=== PATIENT | female | born 1955 | race Caucasian/White ===

== ENCOUNTER 2017-11-30 13:20 | Outpatient (CLI) | payer OTHER ==
[~2017-11-30 13:20] MED LIST: ISOVUE-370 76%-LOCM 1 ML ONE
--- NOTE | 2017-11-30 18:29 | CT ---
CT ABDOMEN WITH AND WITHOUT IV CONTRAST CT PELVIS WITH AND WITHOUT IV CONTRAST: Date: 11-30-17 History: Complex right renal cyst. Follow up evaluation. Comparison: 09-14-16 FINDINGS: Previously described inferior pole right renal cystic lesion is again seen but measures smaller in si ze on today's examination measuring 3.2 cm with measurement on prior study of 4.1 cm. There is sugges tion of a faint thin linear almost imperceptible septation at the lateral aspect of this cystic lesio n. Attenuation coefficients on all phases of imaging suggests that this does represent a renal cyst w ithout abnormal enhancement present. No additional renal mass or cystic lesion is identified and ther e is no hydronephrosis. No renal or ureteral calculi are seen bilaterally. There is mild dependent bibasilar atelectasis. There is evidence of a small hiatal hernia on today's examination. There is mild intrahepatic biliary ductal dilatation just slightly more prominent than on the prior s tudy of uncertain etiology. The common duct measures 0.7 cm in diameter which is at the upper limits of normal. No pancreatic head mass is present. The pancreas has a normal CT appearance. The spleen, bilateral adrenal glands and left kidney demonstrate a normal CT appearance. Left total h ip prosthesis results in spray artifact in the pelvis limiting adequate evaluation of the urinary daryn dder and uterus, but the urinary bladder and uterus demonstrate a grossly normal CT appearance. There is colonic diverticulosis with moderate amount of retained fecal material seen throughout the c olon. No free fluid or lymphadenopathy is seen. The abdominal aorta is tortuous with mild atherosclerotic calcifications and plaque present. Post-surgical changes lumbar spine are again noted. Prominent multilevel degenerative changes in the spine with left convex scoliosis of the thoracolumbar spine. No other interval change. IMPRESSION: 1. Interval decrease in size of the inferior pole Bosniak type II right renal cyst. 2. Mild intrahepatic biliary ductal dilatation of uncertain etiology. 3. Small hiatal hernia. 4. Constipation. 5. No renal or ureteral calculi are seen bilaterally, and there is no hydronephrosis. The distal left ureter is incompletely evaluated due to artifact from left total hip prosthesis. POS: [facility]
== END 2017-11-30 13:21 | disposition home or self-care (01) ==
LOC: BICCT 13:20
PROVIDERS: ATTEND Urology
DX: N28.1 Cyst of kidney, acquired (principal); R93.89 Abnormal findings on diagnostic imaging of other specified body structures; K83.8 Other specified diseases of biliary tract; K44.9 Diaphragmatic hernia without obstruction or gangrene; K59.00 Constipation, unspecified
CPT/HCPCS: 36415; 74178; 80048; 81001; 87086

== ENCOUNTER 2019-07-26 13:45 | Outpatient (CLI) | payer BC ==
--- NOTE | 2019-07-26 15:16 | MRI ---
MRI CERVICAL SPINE WITHOUT CONTRAST: HISTORY: Cervical radiculopathy. Neck pain after tripping on floor and landing on neck a few months ago.. COMPARISON: None. FINDINGS: Appropriate T1 marrow signal intensity of the cervical vertebra. Cervical spine vertebral body heigh t is maintained. No fracture. No significant STIR hyperintensity to suggest vertebral body edema. There does appear to be edema involving the left facet at C4 and C5, along with fluid in the intra-ar ticular facet joint. Changes may be due to stress reaction. No abnormal signal intensity in the visualized brain parenchyma, cervicomedullary junction, cervical cord or the upper thoracic cord. Spinal listhesis: C5-C6: 2.4 mm of retrolisthesis. C6-C7: 2.3 mm of retrolisthesis. C2-C3: Disc desiccation with mild loss of disc space height. No significant central canal stenosis or significant neural foraminal narrowing. C3-C4: Disc desiccation with mild loss of disc space height. Broad-based disc bulge abuts the thecal sac. No significant central canal stenosis. Mild to moderate bilateral neural foraminal narrowing due to uncovertebral hypertrophy. C4-C5: Disc desiccation with mild loss of disc space height. No significant posterior disc abnormalit y. Mild to moderate bilateral foramina narrowing due to uncovertebral hypertrophy. C5-C6: Disc desiccation with severe loss of disc space height. Broad-based disc-osteophyte complex ef faces the subarachnoid space. Moderate central canal stenosis. Moderate to severe right and moderate left neural foraminal narrowing. C6-C7: Disc desiccation with severe loss of disc space height. Broad-based disc-osteophyte complex ab uts the thecal sac. Subarachnoid space is maintained. Mild to moderate central canal stenosis. Moderate bilateral neural foraminal narrowing. C7-T1: No significant central canal stenosis or significant neural foraminal narrowing. T2-T3: Sagittal images demonstrate a posterior disc bulge. Based on the sagittal images, no high-grad e central canal stenosis. IMPRESSION: 1. Degenerative changes of the cervical spine as described above. 2. Edema involving the left facet at C4 and C5, along with fluid in the associated facet joint space. Findings are presumed to be reactive. Transcribed Date/Time: 07/26/2019 3:37 PM
== END 2019-07-26 13:46 | disposition home or self-care (01) ==
LOC: BICMRI 13:45
PROVIDERS: ATTEND Anesthesiology Pain Medicine
DX: M50.10 Cervical disc disorder with radiculopathy, unspecified cervical region (principal); M47.22 Other spondylosis with radiculopathy, cervical region; R60.0 Localized edema
CPT/HCPCS: 72141

== ENCOUNTER 2021-07-01 10:48 | Outpatient (CLI) | payer MEDICARE | END 2021-07-01 10:49 | disposition home or self-care (01) | LOC: BICULT 10:48 | PROVIDERS: ATTEND Family Medicine | DX: R22.1 Localized swelling, mass and lump, neck (principal); R19.03 Right lower quadrant abdominal swelling, mass and lump; S22.41XA Multiple fractures of ribs, right side, initial encounter for closed fracture; R91.8 Other nonspecific abnormal finding of lung field | CPT/HCPCS: 74177; 76536; 82565 ==

== ENCOUNTER 2021-07-14 12:16 | Outpatient (CLI) | payer MEDICARE | END 2021-07-14 12:17 | disposition home or self-care (01) | LOC: CT 12:16 | PROVIDERS: ATTEND Family Medicine | DX: E07.89 Other specified disorders of thyroid (principal) | CPT/HCPCS: 70491; 82565 ==

== ENCOUNTER → 2021-08-03 | Day surgery (SDC) | payer MEDICARE ==
[2021-07-29 12:26] VITALS: BMI 17.9
[~2021-08-03] MED LIST changes: -ISOVUE-370 76%-LOCM 1 ML ONE; +Lidocaine 1% PF 5 ML VIAL ONE; +Sodium Bicarbonate 2.5 MEQ/5 ML VIAL ONE
[2021-08-03 15:07] VITALS: BP 133/78; TEMP 98.1
== END | disposition home or self-care (01) ==
LOC: ULT 13:35
PROVIDERS: ATTEND Student in an Organized Health Care Education/Training Program
PROC: 0J943ZX Drainage of Right Neck Subcutaneous Tissue and Fascia, Percutaneous Approach, Diagnostic (ICD-10-PCS; principal; 2021-08-03)
DX: R22.1 Localized swelling, mass and lump, neck (principal); Z79.82 Long term (current) use of aspirin; Z79.890 Hormone replacement therapy; Z79.899 Other long term (current) drug therapy; Z88.0 Allergy status to penicillin; Z88.1 Allergy status to other antibiotic agents; Z88.2 Allergy status to sulfonamides; Z88.8 Allergy status to other drugs, medicaments and biological substances; Z91.048 Other nonmedicinal substance allergy status
CPT/HCPCS: 10005; 88184; 88305; 88333

== ENCOUNTER 2021-08-04 14:23 | Outpatient (CLI) | payer MEDICARE | END 2021-08-04 14:24 | disposition home or self-care (01) | LOC: LABBT 14:23 | PROVIDERS: ATTEND Internal Medicine Gastroenterology | DX: Z20.822 Contact with and (suspected) exposure to COVID-19 (principal) | CPT/HCPCS: U0003; U0005 ==

== ENCOUNTER 2021-08-09 08:17 | Day surgery (SDC) | payer MEDICARE ==
[2021-08-05 11:44] VITALS: BMI 16.4
[2021-08-09] MEDS ORDERED: PROPOFOL 200 MG/20 ML VIAL ONE (09:37)
[2021-08-09] MEDS ORDERED: Racepinephrine 2.25% 0.5 ML NEB ONE ×2 (10:43→10:45)
[2021-08-09] MEDS ORDERED: Ondansetron PF 4 MG/2 ML Vial ONE (11:16)
== END 2021-08-09 13:40 | disposition home or self-care (01) ==
LOC: SDC 08:17
PROVIDERS: ATTEND Internal Medicine Gastroenterology
PROC: 0DB98ZX Excision of Duodenum, Via Natural or Artificial Opening Endoscopic, Diagnostic (ICD-10-PCS; principal; 2021-08-09)
PROC: 0DB68ZX Excision of Stomach, Via Natural or Artificial Opening Endoscopic, Diagnostic (ICD-10-PCS; 2021-08-09)
PROC: 0DB48ZX Excision of Esophagogastric Junction, Via Natural or Artificial Opening Endoscopic, Diagnostic (ICD-10-PCS; 2021-08-09)
PROC: 0DJD8ZZ Inspection of Lower Intestinal Tract, Via Natural or Artificial Opening Endoscopic (ICD-10-PCS; 2021-08-09)
DX: C83.39 Diffuse large B-cell lymphoma, extranodal and solid organ sites (principal); B37.81 Candidal esophagitis; K25.9 Gastric ulcer, unspecified as acute or chronic, without hemorrhage or perforation; K44.9 Diaphragmatic hernia without obstruction or gangrene; K21.9 Gastro-esophageal reflux disease without esophagitis; R13.19 Other dysphagia; K59.09 Other constipation; E78.00 Pure hypercholesterolemia, unspecified; E03.9 Hypothyroidism, unspecified; F17.210 Nicotine dependence, cigarettes, uncomplicated; R63.4 Abnormal weight loss; Z68.1 Body mass index [BMI] 19.9 or less, adult; Z79.82 Long term (current) use of aspirin; Z79.899 Other long term (current) drug therapy; Z79.890 Hormone replacement therapy; Z88.0 Allergy status to penicillin; Z88.1 Allergy status to other antibiotic agents; Z88.2 Allergy status to sulfonamides; Z88.8 Allergy status to other drugs, medicaments and biological substances; Z91.040 Latex allergy status; Z91.048 Other nonmedicinal substance allergy status
CPT/HCPCS: 88184; 88305; 88312; 88313; J2405; J2704; J7620

== ENCOUNTER 2021-08-16 16:52 | Inpatient (IN) | payer MEDICARE ==
[~2021-08-16 16:52] MED LIST changes: +ISOVUE-370 76%-LOCM 1 ML ONE; -Lidocaine 1% PF 5 ML VIAL ONE; -Sodium Bicarbonate 2.5 MEQ/5 ML VIAL ONE
[2021-08-16 17:33] LABS: #Basophils 0.1 thou/uL (0.0-0.2); #Lymphocytes 0.4 thou/uL (1.20-3.40); #Monocytes 0.1 thou/uL (0.11-0.59); #Neutrophils 10.7 thou/uL (1.40-6.50); %Basophils 0.6 % (0.0-1.0); %Eosinophils 0.2 % (0.0-10.0); %Lymphocytes 3.3 % (21.0-51.0); %Neutrophils 94.9 % (42.0-75.0); Hemoglobin 9.8 g/dL (12.0-16.0); Mean Corpuscular HGB CONC 33.1 g/dL (32.0-36.0); Mean Corpuscular Hemoglobin 31.8 pg (27.0-31.0); Mean Platelet Volume 6.4 fL (7.4-10.4); Platelet Count 482 thou/uL (130-400); RBC Distribution Width 13.1 % (11.5-14.5); Red Blood Cell (RBC) Count 3.08 mill/uL (4.20-5.40); White Blood Cell (WBC) Count 11.3 thou/uL (4.8-10.8)
[2021-08-16 17:53] LABS: ALT (SGPT) 7 U/L (8-55); AST (SGOT) 14 U/L (5-34); Albumin 3.1 g/dL (3.4-4.8); Alkaline Phosphatase 103 U/L (40-110); Anion Gap 13 mmol/L (10-20); BUN (Urea Nitrogen) 12 mg/dL (9.8-20.1); Bilirubin, Total 0.2 mg/dL (0.2-1.2); Calc. Creatinine Clearance 0 mL/min (70-130); Carbon Dioxide 28 mmol/L (23-31); Chloride 98 mmol/L (98-107); Globulin 2.4 g/dL (2.4-3.5); Glucose 136 mg/dL (80-115); Potassium 4.1 mmol/L (3.5-5.1); Protein, Total 5.5 g/dL (5.8-8.1); Sodium 135 mmol/L (136-145)
[2021-08-16 20:51] LABS: Troponin I Less than 0.010 ng/mL (< 0.028)
[2021-08-16] MEDS ORDERED: Ondansetron ODT 4 MG TAB SL PRN (21:00)
[2021-08-16] MEDS ORDERED: Acetaminophen 325 MG TAB PO PRN (21:00)
[2021-08-16] MEDS ORDERED: Ondansetron PF 4 MG/2 ML Vial IVP PRN (21:00)
[2021-08-16] MEDS ORDERED: Acetaminophen 650 MG Suppository PR PRN (21:07)
[2021-08-16 21:12] LABS: SARS-CoV-2 NAA Rapid Test Not Detected (NotDetected)
[2021-08-16 23:27] LABS: Troponin I Less than 0.010 ng/mL (< 0.028)
[2021-08-17 04:04] LABS: #Lymphocytes 0.5 thou/uL (1.20-3.40); #Monocytes 0.1 thou/uL (0.11-0.59); #Neutrophils 7.8 thou/uL (1.40-6.50); %Eosinophils 0.1 % (0.0-10.0); %Lymphocytes 5.5 % (21.0-51.0); %Monocytes 1.5 % (0.0-10.0); %Neutrophils 92.9 % (42.0-75.0); Hemoglobin 9.9 g/dL (12.0-16.0); Mean Corpuscular HGB CONC 32.1 g/dL (32.0-36.0); Mean Corpuscular Hemoglobin 31.5 pg (27.0-31.0); Mean Corpuscular Volume 98.2 fL (78.0-98.0); Mean Platelet Volume 6.2 fL (7.4-10.4); Platelet Count 510 thou/uL (130-400); RBC Distribution Width 13.3 % (11.5-14.5); Red Blood Cell (RBC) Count 3.13 mill/uL (4.20-5.40); White Blood Cell (WBC) Count 8.4 thou/uL (4.8-10.8)
[2021-08-17 04:23] LABS: Anion Gap 12 mmol/L (10-20); BUN (Urea Nitrogen) 13 mg/dL (9.8-20.1); Calc. Creatinine Clearance 48 mL/min (70-130); Calcium 8.7 mg/dL (7.8-10.44); Carbon Dioxide 30 mmol/L (23-31); Chloride 99 mmol/L (98-107); Glucose 123 mg/dL (80-115); Potassium 4.2 mmol/L (3.5-5.1); Sodium 137 mmol/L (136-145)
[2021-08-17] MEDS: Amlodipine 5 MG TAB PO SCH ×2 (08:50→13:50)
[2021-08-17] MEDS: Buprenorphine 8mg/Naloxone 2mg per 1 FILM SL SCH ×2 (08:50→20:52)
[2021-08-17] MEDS: Aspirin 81 mg Enteric Coated Tablet PO SCH ×2 (08:50→13:50)
[2021-08-17] MEDS: Gabapentin 300 MG CAP PO SCH ×4 (08:50→20:28)
[2021-08-17] MEDS: DULoxetine 60 MG CAP PO SCH ×2 (08:50→13:50)
[2021-08-17] MEDS: levETIRAcetam 500 MG TAB PO SCH ×3 (08:51→20:29)
[2021-08-17] MEDS: Levothyroxine Sodium 100 MCG TAB PO SCH ×2 (08:51→13:50)
[2021-08-17] MEDS: Multivitamin W/ Minerals 1 TAB PO SCH ×2 (08:51→13:50)
[2021-08-17] MEDS ORDERED: [UNRECOGNIZED DRUG - OTHER] SL SCH (09:00)
[2021-08-17] MEDS ORDERED: [UNRECOGNIZED DRUG - OTHER] SL SCH (09:00)
[2021-08-17] MEDS ORDERED: Non-Formulary Item 1 EACH (Multivitamin With Minerals [Multiple Vitamin] 1 TABLET Tablet) PO SCH (09:00)
[2021-08-17] MEDS ORDERED: BUPRENORPHINE HCL SL SCH ×2 (09:00)
[2021-08-17] MEDS ORDERED: Non-Formulary Item 1 EACH (Amlodipine Besylate [Amlodipine Besylate] 2.5 MG Tablet) PO SCH (09:00)
[2021-08-17] MEDS ORDERED: NALOXONE HCL SL SCH ×2 (09:00)
[2021-08-17] MEDS: Enoxaparin Sodium 40 MG/0.4 ML SYRINGE SC SCH (09:39)
[2021-08-17] MEDS: Atorvastatin Calcium 40 MG TAB PO SCH (20:28)
[2021-08-17] MEDS ORDERED: Donepezil HCl 5 MG TAB PO SCH (21:00)
[2021-08-18] MEDS: Enoxaparin Sodium 40 MG/0.4 ML SYRINGE SC SCH (07:58)
[2021-08-18 08:54] LABS: INR-International Normal Ratio 0.9; PTT 26.2 sec (22.9-36.1); Prothrombin Time 12.3 sec (12.0-14.7)
[2021-08-18] MEDS ORDERED: Dexamethasone 20 MG in Sodium Chloride 0.9% 50 ML IVPB SCH ×2 (09:00→11:30)
[2021-08-18] MEDS ORDERED: SODIUM CHLORIDE 0.9% IVPB SCH ×3 (09:00→13:00)
[2021-08-18] MEDS ORDERED: PALONOSETRON HCL 0.05 MG/ML 5 ML VIAL IVP SCH ×2 (09:00→11:15)
[2021-08-18] MEDS ORDERED: RITUXAN IVPB SCH (09:00)
[2021-08-18] MEDS ORDERED: diphenhydrAMINE 50 MG/ML VIAL IVP SCH (09:00)
[2021-08-18] MEDS ORDERED: Pegfilgrastim Onpro 6 MG/0.6 ML SQ SCH (09:00)
[2021-08-18] MEDS ORDERED: DOXORUBICIN IVPB SCH ×2 (09:15→13:00)
[2021-08-18] MEDS ORDERED: VINCRISTINE SULFATE IVP SCH (09:15)
[2021-08-18] MEDS ORDERED: Cyclophosphamide 1 GM in Sodium Chloride 0.9% 250 ML 250 ML IVPB SCH ×2 (09:15→13:00)
[2021-08-18] MEDS ORDERED: ADMIXTURE FEE IVP SCH (09:15)
[2021-08-18] MEDS: Buprenorphine 8mg/Naloxone 2mg per 1 FILM SL SCH ×2 (10:19→22:31)
[2021-08-18] MEDS: Aspirin 81 mg Enteric Coated Tablet PO SCH (10:20)
[2021-08-18] MEDS: Multivitamin W/ Minerals 1 TAB PO SCH (10:21)
[2021-08-18] MEDS: Levothyroxine Sodium 100 MCG TAB PO SCH (10:22)
[2021-08-18] MEDS: Gabapentin 300 MG CAP PO SCH ×3 (10:22→21:36)
[2021-08-18] MEDS: DULoxetine 60 MG CAP PO SCH (10:23)
[2021-08-18] MEDS: levETIRAcetam 500 MG TAB PO SCH ×2 (10:23→21:36)
[2021-08-18] MEDS: Amlodipine 5 MG TAB PO SCH (10:24)
[2021-08-18 10:26] VITALS: BP 144/68
[2021-08-18] MEDS ORDERED: Sodium Bicarbonate 2.5 MEQ/5 ML VIAL ONE (11:28)
[2021-08-18] MEDS ORDERED: Lidocaine 1% PF 5 ML VIAL ONE (11:28)
[2021-08-18] MEDS ORDERED: diphenhydrAMINE 50 MG in Sodium Chloride 0.9% 50 ML IVPB SCH (11:30)
[2021-08-18] MEDS ORDERED: vinCRIStine Sulfate 2 MG in Sodium Chloride 0.9% 50 ML IVPB SCH (13:00)
[2021-08-18] MEDS ORDERED: methylPREDNISolone Sod Succ/PF 125 MG/2 ML VIAL IVP SCH (13:30)
[2021-08-18] MEDS ORDERED: Ondansetron PF 4 MG/2 ML Vial IVP PRN (18:28)
[2021-08-18] MEDS: Atorvastatin Calcium 40 MG TAB PO SCH (21:36)
[2021-08-19] MEDS ORDERED: predniSONE 50 MG TAB PO SCH (08:00)
[2021-08-19] MEDS: Buprenorphine 8mg/Naloxone 2mg per 1 FILM SL SCH ×2 (09:38→20:51)
[2021-08-19] MEDS: DULoxetine 60 MG CAP PO SCH (09:39)
[2021-08-19] MEDS: Aspirin 81 mg Enteric Coated Tablet PO SCH (09:39)
[2021-08-19] MEDS: Amlodipine 5 MG TAB PO SCH (09:39)
[2021-08-19] MEDS: levETIRAcetam 500 MG TAB PO SCH ×2 (09:39→20:29)
[2021-08-19] MEDS: Enoxaparin Sodium 40 MG/0.4 ML SYRINGE SC SCH (09:39)
[2021-08-19] MEDS: Multivitamin W/ Minerals 1 TAB PO SCH (09:39)
[2021-08-19] MEDS: Gabapentin 300 MG CAP PO SCH ×3 (09:39→20:28)
[2021-08-19] MEDS: Levothyroxine Sodium 100 MCG TAB PO SCH (09:39)
[2021-08-19] MEDS ORDERED: Acetaminophen 500 MG TAB PO SCH (14:30)
[2021-08-19] MEDS ORDERED: PEGFILGRASTIM-JMDB 6 MG/0.6 ML SYRINGE SQ SCH (14:30)
[2021-08-19] MEDS: Atorvastatin Calcium 40 MG TAB PO SCH (20:28)
[2021-08-19] MEDS: Acetaminophen 325 MG TAB PO PRN (23:23)
[2021-08-20 04:40] LABS: #Lymphocytes 0.7 thou/uL (1.20-3.40); #Monocytes 0.5 thou/uL (0.11-0.59); #Neutrophils 14.7 thou/uL (1.40-6.50); %Basophils 0.1 % (0.0-1.0); %Eosinophils 0.2 % (0.0-10.0); %Lymphocytes 4.6 % (21.0-51.0); %Monocytes 3.4 % (0.0-10.0); %Neutrophils 91.7 % (42.0-75.0); Hemoglobin 9.3 g/dL (12.0-16.0); Mean Corpuscular HGB CONC 31.7 g/dL (32.0-36.0); Mean Corpuscular Hemoglobin 31.6 pg (27.0-31.0); Mean Corpuscular Volume 99.7 fL (78.0-98.0); Mean Platelet Volume 6.7 fL (7.4-10.4); Platelet Count 428 thou/uL (130-400); RBC Distribution Width 13.3 % (11.5-14.5); Red Blood Cell (RBC) Count 2.94 mill/uL (4.20-5.40); White Blood Cell (WBC) Count 16.1 thou/uL (4.8-10.8)
[2021-08-20 05:05] LABS: Anion Gap 11 mmol/L (10-20); BUN (Urea Nitrogen) 11 mg/dL (9.8-20.1); Calc. Creatinine Clearance 59 mL/min (70-130); Calcium 8.5 mg/dL (7.8-10.44); Carbon Dioxide 31 mmol/L (23-31); Chloride 99 mmol/L (98-107); Glucose 105 mg/dL (80-115); Potassium 4.3 mmol/L (3.5-5.1); Sodium 137 mmol/L (136-145)
[2021-08-20] MEDS: Gabapentin 300 MG CAP PO SCH ×3 (09:56→22:03)
[2021-08-20] MEDS: Multivitamin W/ Minerals 1 TAB PO SCH (09:56)
[2021-08-20] MEDS: Aspirin 81 mg Enteric Coated Tablet PO SCH (09:56)
[2021-08-20] MEDS: Buprenorphine 8mg/Naloxone 2mg per 1 FILM SL SCH ×2 (09:56→22:04)
[2021-08-20] MEDS: Levothyroxine Sodium 100 MCG TAB PO SCH (09:56)
[2021-08-20] MEDS: DULoxetine 60 MG CAP PO SCH (09:57)
[2021-08-20] MEDS: Amlodipine 5 MG TAB PO SCH (09:57)
[2021-08-20] MEDS: levETIRAcetam 500 MG TAB PO SCH ×2 (09:57→22:03)
[2021-08-20] MEDS: Enoxaparin Sodium 40 MG/0.4 ML SYRINGE SC SCH (09:57)
[2021-08-20 14:14] VITALS: BMI 17.4
[2021-08-20] MEDS: Atorvastatin Calcium 40 MG TAB PO SCH (22:03)
[2021-08-21 06:40] LABS: ALT (SGPT) 14 U/L (8-55); AST (SGOT) 15 U/L (5-34); Albumin 2.9 g/dL (3.4-4.8); Alkaline Phosphatase 84 U/L (40-110); Anion Gap 8 mmol/L (10-20); BUN (Urea Nitrogen) 11 mg/dL (9.8-20.1); Bilirubin, Total 0.2 mg/dL (0.2-1.2); Calc. Creatinine Clearance 64 mL/min (70-130); Calcium 8.2 mg/dL (7.8-10.44); Carbon Dioxide 33 mmol/L (23-31); Chloride 101 mmol/L (98-107); Globulin 2.3 g/dL (2.4-3.5); Glucose 85 mg/dL (80-115); Potassium 4.3 mmol/L (3.5-5.1); Protein, Total 5.2 g/dL (5.8-8.1); Sodium 138 mmol/L (136-145); Uric Acid 3.8 mg/dL (2.6-6.0)
[2021-08-21] MEDS: Aspirin 81 mg Enteric Coated Tablet PO SCH (09:46)
[2021-08-21] MEDS: Gabapentin 300 MG CAP PO SCH ×3 (09:47→21:33)
[2021-08-21] MEDS: Amlodipine 5 MG TAB PO SCH (09:47)
[2021-08-21] MEDS: predniSONE 50 MG TAB PO SCH (09:47)
[2021-08-21] MEDS: Multivitamin W/ Minerals 1 TAB PO SCH (09:48)
[2021-08-21] MEDS: levETIRAcetam 500 MG TAB PO SCH ×2 (09:48→21:33)
[2021-08-21] MEDS: DULoxetine 60 MG CAP PO SCH (09:48)
[2021-08-21] MEDS: Enoxaparin Sodium 40 MG/0.4 ML SYRINGE SC SCH (09:48)
[2021-08-21] MEDS: Buprenorphine 8mg/Naloxone 2mg per 1 FILM SL SCH ×2 (09:49→21:32)
[2021-08-21] MEDS: Levothyroxine Sodium 100 MCG TAB PO SCH (09:52)
[2021-08-21] MEDS: Acetaminophen 325 MG TAB PO PRN (10:13)
[2021-08-21] MEDS ORDERED: PEGFILGRASTIM-JMDB 6 MG/0.6 ML SYRINGE SQ SCH (13:00)
[2021-08-21] MEDS: Atorvastatin Calcium 40 MG TAB PO SCH (21:32)
[2021-08-22] MEDS: Acetaminophen 325 MG TAB PO PRN (04:42)
[2021-08-22 07:16] LABS: ALT (SGPT) 16 U/L (8-55); AST (SGOT) 13 U/L (5-34); Alkaline Phosphatase 94 U/L (40-110); Anion Gap 11 mmol/L (10-20); BUN (Urea Nitrogen) 12 mg/dL (9.8-20.1); Bilirubin, Total 0.2 mg/dL (0.2-1.2); Calc. Creatinine Clearance 61 mL/min (70-130); Calcium 8.5 mg/dL (7.8-10.44); Carbon Dioxide 33 mmol/L (23-31); Chloride 101 mmol/L (98-107); Globulin 2.5 g/dL (2.4-3.5); Potassium 4.1 mmol/L (3.5-5.1); Protein, Total 5.5 g/dL (5.8-8.1); Sodium 141 mmol/L (136-145)
[2021-08-22 07:20] LABS: Glucose 55 mg/dL (80-115)
[2021-08-22] MEDS: Levothyroxine Sodium 100 MCG TAB PO SCH (07:49)
[2021-08-22] MEDS: Amlodipine 5 MG TAB PO SCH (07:50)
[2021-08-22] MEDS: Multivitamin W/ Minerals 1 TAB PO SCH (07:50)
[2021-08-22] MEDS: levETIRAcetam 500 MG TAB PO SCH ×2 (07:50→19:57)
[2021-08-22] MEDS: Aspirin 81 mg Enteric Coated Tablet PO SCH (07:50)
[2021-08-22] MEDS: DULoxetine 60 MG CAP PO SCH (07:50)
[2021-08-22] MEDS: Gabapentin 300 MG CAP PO SCH ×3 (07:50→19:56)
[2021-08-22] MEDS: predniSONE 50 MG TAB PO SCH (07:50)
[2021-08-22] MEDS: Buprenorphine 8mg/Naloxone 2mg per 1 FILM SL SCH ×2 (07:51→20:15)
[2021-08-22] MEDS: Enoxaparin Sodium 40 MG/0.4 ML SYRINGE SC SCH (07:51)
[2021-08-22] MEDS: Atorvastatin Calcium 40 MG TAB PO SCH (19:56)
[2021-08-23 04:53] LABS: ALT (SGPT) 10 U/L (8-55); AST (SGOT) 8 U/L (5-34); Albumin 2.7 g/dL (3.4-4.8); Alkaline Phosphatase 93 U/L (40-110); Anion Gap 10 mmol/L (10-20); BUN (Urea Nitrogen) 17 mg/dL (9.8-20.1); Bilirubin, Total 0.3 mg/dL (0.2-1.2); Calc. Creatinine Clearance 60 mL/min (70-130); Calcium 8.3 mg/dL (7.8-10.44); Carbon Dioxide 34 mmol/L (23-31); Chloride 103 mmol/L (98-107); Globulin 2.2 g/dL (2.4-3.5); Glucose 83 mg/dL (80-115); Potassium 4.1 mmol/L (3.5-5.1); Protein, Total 4.9 g/dL (5.8-8.1); Sodium 143 mmol/L (136-145); Uric Acid 3.8 mg/dL (2.6-6.0)
[2021-08-23] MEDS: Acetaminophen 325 MG TAB PO PRN (06:22)
[2021-08-23] MEDS: Aspirin 81 mg Enteric Coated Tablet PO SCH (08:04)
[2021-08-23] MEDS: Multivitamin W/ Minerals 1 TAB PO SCH (08:04)
[2021-08-23] MEDS: predniSONE 50 MG TAB PO SCH (08:04)
[2021-08-23] MEDS: Gabapentin 300 MG CAP PO SCH (08:04)
[2021-08-23] MEDS: Amlodipine 5 MG TAB PO SCH (08:05)
[2021-08-23] MEDS: levETIRAcetam 500 MG TAB PO SCH (08:07)
[2021-08-23] MEDS: Enoxaparin Sodium 40 MG/0.4 ML SYRINGE SC SCH (08:07)
[2021-08-23] MEDS: Levothyroxine Sodium 100 MCG TAB PO SCH (08:07)
[2021-08-23] MEDS: DULoxetine 60 MG CAP PO SCH (08:07)
[2021-08-23] MEDS: Buprenorphine 8mg/Naloxone 2mg per 1 FILM SL SCH (09:31)
[2021-08-23 15:30] VITALS: TEMP 98
== END 2021-08-23 17:20 | disposition home health service (06) | DRG 840 ==
LOC: ERS 16:52 → IMCU/EMU 19:20
PROVIDERS: ADMIT Student in an Organized Health Care Education/Training Program; ATTEND Internal Medicine
PROC: 079T3ZX Drainage of Bone Marrow, Percutaneous Approach, Diagnostic (ICD-10-PCS; principal; 2021-08-18)
PROC: 07DR3ZX Extraction of Iliac Bone Marrow, Percutaneous Approach, Diagnostic (ICD-10-PCS; 2021-08-18)
PROC: 02HV33Z Insertion of Infusion Device into Superior Vena Cava, Percutaneous Approach (ICD-10-PCS; 2021-08-18)
PROC: B5181ZA Fluoroscopy of Superior Vena Cava using Low Osmolar Contrast, Guidance (ICD-10-PCS; 2021-08-18)
PROC: B548ZZA Ultrasonography of Superior Vena Cava, Guidance (ICD-10-PCS; 2021-08-18)
DX: C83.31 Diffuse large B-cell lymphoma, lymph nodes of head, face, and neck (principal); E43 Unspecified severe protein-calorie malnutrition; Z68.1 Body mass index [BMI] 19.9 or less, adult; E03.9 Hypothyroidism, unspecified; E78.5 Hyperlipidemia, unspecified; E78.00 Pure hypercholesterolemia, unspecified; Z96.642 Presence of left artificial hip joint; Z96.651 Presence of right artificial knee joint; F32.A Depression, unspecified; F41.9 Anxiety disorder, unspecified; J39.8 Other specified diseases of upper respiratory tract; G89.29 Other chronic pain; D72.829 Elevated white blood cell count, unspecified; Z20.822 Contact with and (suspected) exposure to COVID-19; F17.210 Nicotine dependence, cigarettes, uncomplicated; D63.0 Anemia in neoplastic disease; J43.9 Emphysema, unspecified; I48.91 Unspecified atrial fibrillation; G40.909 Epilepsy, unspecified, not intractable, without status epilepticus; K21.9 Gastro-esophageal reflux disease without esophagitis; I34.0 Nonrheumatic mitral (valve) insufficiency; Z88.0 Allergy status to penicillin; Z88.2 Allergy status to sulfonamides; Z88.1 Allergy status to other antibiotic agents; Z91.040 Latex allergy status; Z98.890 Other specified postprocedural states; Z88.8 Allergy status to other drugs, medicaments and biological substances; Z79.82 Long term (current) use of aspirin; Z79.899 Other long term (current) drug therapy
CPT/HCPCS: 36415; 36416; 36569; 38222; 70491; 71045; 77012; 80048; 80053; 83615; 84484; 84550; 85025; 85097; 85610; 85730; 88184; 88237; 88264; 88280; 88305; 88311; 88313; 88341; 88342; 93005; 93306; J1100; J1200; J1453; J1650; J2405; J2469; J2930; J3490; J7030; J7050; J7512; J9000; J9070; J9370; Q0162; Q5108; Q5115; Q9966; U0002; U0003; U0005

== ENCOUNTER 2021-08-26 15:47 | Inpatient (IN) | payer MEDICARE ==
[2021-08-26] MEDS ORDERED: Cefepime 2 GM VIAL ONE (16:47)
[2021-08-26] MEDS ORDERED: Vancomycin 1 GM/200 ML BAG ONE (16:48)
[2021-08-26 16:50] LABS: Hemoglobin 4.2 g/dL (12.0-16.0); Mean Corpuscular HGB CONC 32.6 g/dL (32.0-36.0); Mean Corpuscular Hemoglobin 31.1 pg (27.0-31.0); Mean Corpuscular Volume 95.5 fL (78.0-98.0); Mean Platelet Volume 8.8 fL (7.4-10.4); Platelet Count 201 thou/uL (130-400); RBC Distribution Width 13.6 % (11.5-14.5); Red Blood Cell (RBC) Count 1.34 mill/uL (4.20-5.40); White Blood Cell (WBC) Count 5.5 thou/uL (4.8-10.8)
[2021-08-26 16:55] LABS: Bilirubin Negative (Negative); Blood, Urine Negative (Negative); Clarity Clear (Clear); Glucose, Urine (Dipstick) Normal (Negative); Ketone, Urine Negative (Negative); Leukocyte Negative Leu/uL (Negative); Nitrite Negative (Negative); Protein, Urine (Dipstick) Negative (Neg-Trace); Specific Gravity, Urine 1.013 (1.002-1.036); Urobilinogen Normal mg/dL (Less than 2); pH, Urine 6.5 (5.0-9.0)
[2021-08-26 16:56] LABS: INR-International Normal Ratio 1.1; Prothrombin Time 14.1 sec (12.0-14.7)
[2021-08-26 17:00] LABS: ALT (SGPT) 13 U/L (8-55); AST (SGOT) 12 U/L (5-34); Albumin 2.8 g/dL (3.4-4.8); Alkaline Phosphatase 111 U/L (40-110); Anion Gap 17 mmol/L (10-20); BUN (Urea Nitrogen) 58 mg/dL (9.8-20.1); Bilirubin, Total 0.2 mg/dL (0.2-1.2); Calc. Creatinine Clearance 0 mL/min (70-130); Calcium 7.7 mg/dL (7.8-10.44); Carbon Dioxide 24 mmol/L (23-31); Chloride 112 mmol/L (98-107); Estimated GFR 47; Glucose 121 mg/dL (80-115); Lipase 7 U/L (8-78); Potassium 4.4 mmol/L (3.5-5.1); Protein, Total 4.8 g/dL (5.8-8.1); Sodium 149 mmol/L (136-145)
[2021-08-26 17:02] LABS: PTT 20.7 sec (22.9-36.1)
[2021-08-26 17:10] LABS: Band 6 % (5-11); Lymphocytes 9 % (21-51); MDiff Complete? YES; Monocytes 7 % (0-10); Neutrophil 78 % (42-75); Platelet Morphology Comment Appears Adequate; Polychromasia SLIGHT = 2-3 cells (100X) (0-2/hpf)
[2021-08-26 19:29] LABS: Lactic Acid 2.6 mmol/L (0.5-2.2)
[2021-08-26] MEDS ORDERED: Senokot S 8.6-50 MG TAB PO PRN ×2 (19:46→20:15)
[2021-08-26] MEDS ORDERED: Bisacodyl 5 MG TAB PO PRN (19:46)
[2021-08-26] MEDS ORDERED: Bisacodyl 10 MG SUPP PR PRN (19:46)
[2021-08-26] MEDS ORDERED: Calcium Carbonate 500 MG ChewTAB PO PRN (19:46)
[2021-08-26] MEDS ORDERED: Acetaminophen 325 MG TAB PO PRN (19:46)
[2021-08-26 20:03] LABS: SARS-CoV-2 NAA Rapid Test Not Detected (NotDetected)
[2021-08-26 20:42] LABS: Troponin I 0.011 ng/mL (< 0.028)
[2021-08-26] MEDS ORDERED: Famotidine 20 MG TAB PO SCH (21:00)
[2021-08-26 23:50] LABS: Troponin I 0.014 ng/mL (< 0.028)
[2021-08-27 05:07] VITALS: BMI 17.3
[2021-08-27] MEDS ORDERED: Famotidine 20 MG TAB PO SCH (09:00)
[2021-08-27] MEDS ORDERED: Amlodipine 5 MG TAB PO SCH ×2 (09:00→15:00)
[2021-08-27] MEDS: levETIRAcetam 500 MG TAB PO SCH ×2 (09:23→20:42)
[2021-08-27] MEDS: DULoxetine 60 MG CAP PO SCH (09:23)
[2021-08-27 09:59] LABS: Albumin 3.3 g/dL (3.4-4.8); Anion Gap 15 mmol/L (10-20); BUN (Urea Nitrogen) 36 mg/dL (9.8-20.1); BUN/Creatinine Ratio 36.73; Calc. Creatinine Clearance 38 mL/min (70-130); Calcium 8.2 mg/dL (7.8-10.44); Carbon Dioxide 26 mmol/L (23-31); Chloride 116 mmol/L (98-107); Estimated GFR 64; Glucose 100 mg/dL (80-115); Phosphorus 3.7 mg/dL (2.3-4.7); Potassium 3.4 mmol/L (3.5-5.1); Sodium 154 mmol/L (136-145)
[2021-08-27 10:18] LABS: Hemoglobin 9.8 g/dL (12.0-16.0); MDiff Complete? YES; Mean Corpuscular HGB CONC 33.3 g/dL (32.0-36.0); Mean Corpuscular Hemoglobin 31.7 pg (27.0-31.0); Platelet Count 173 thou/uL (130-400); RBC Distribution Width 13.1 % (11.5-14.5); Red Blood Cell (RBC) Count 3.08 mill/uL (4.20-5.40); White Blood Cell (WBC) Count 4.9 thou/uL (4.8-10.8)
[2021-08-27 10:19] LABS: Band 37 % (5-11); Lymphocytes 7 % (21-51); Metamyelocyte 3 % (0-0); Monocytes 17 % (0-10); Myelocyte 5 % (0-0); Neutrophil 29 % (42-75); Nucleated RBC 7 % (0); Ovalocytes SLIGHT = 2-5 cells (100X) (0-1/hpf); Platelet Morphology Comment Appears Adequate; Polychromasia MODERATE = 3-4 cells (100X) (0-2/hpf); Reactive Lymphocytes 2 % (0-10)
[2021-08-27] MEDS ORDERED: Dextrose 5% in Water 1,000 ML IV SCH (12:00)
[2021-08-27] MEDS ORDERED: Potassium Chloride 10 MEQ in Premix Bag 1 BAG IVPB SCH (13:00)
[2021-08-27 14:44] LABS: Hemoglobin 8.8 g/dL (12.0-16.0)
[2021-08-27] MEDS ORDERED: hydrALAZINE 20 MG/ML VIAL SLOW IVP PRN (14:55)
[2021-08-27 14:59] LABS: Anion Gap 13 mmol/L (10-20); Carbon Dioxide 27 mmol/L (23-31); Chloride 110 mmol/L (98-107); Sodium 147 mmol/L (136-145)
[2021-08-27] MEDS: HYDROcodone/Acetaminophen 7.5/325 mg Tablet PO PRN (18:04)
[2021-08-27] MEDS: Potassium Chloride 20 MEQ in Premix Bag 1 BAG IVPB SCH ×2 (18:22→20:42)
[2021-08-27 18:45] LABS: Anion Gap 12 mmol/L (10-20); Carbon Dioxide 26 mmol/L (23-31); Chloride 106 mmol/L (98-107); Sodium 141 mmol/L (136-145)
[2021-08-27] MEDS: Atorvastatin Calcium 40 MG TAB PO SCH (20:42)
[2021-08-27] MEDS: Donepezil HCl 5 MG TAB PO SCH (20:42)
[2021-08-27] MEDS: Dextrose 5% in Water 1,000 ML IV SCH (20:52)
[2021-08-28] MEDS: HYDROcodone/Acetaminophen 7.5/325 mg Tablet PO PRN ×3 (04:27→20:14)
[2021-08-28 05:46] LABS: Anion Gap 13 mmol/L (10-20); BUN (Urea Nitrogen) 19 mg/dL (9.8-20.1); Calc. Creatinine Clearance 46 mL/min (70-130); Calcium 8.3 mg/dL (7.8-10.44); Carbon Dioxide 26 mmol/L (23-31); Chloride 108 mmol/L (98-107); Estimated GFR 80; Glucose 122 mg/dL (80-115); Potassium 3.3 mmol/L (3.5-5.1); Sodium 144 mmol/L (136-145)
[2021-08-28 05:59] LABS: Hemoglobin 9.1 g/dL (12.0-16.0); Mean Corpuscular HGB CONC 33.5 g/dL (32.0-36.0); Mean Corpuscular Hemoglobin 31.5 pg (27.0-31.0); Mean Corpuscular Volume 93.8 fL (78.0-98.0); Mean Platelet Volume 8.7 fL (7.4-10.4); Platelet Count 106 thou/uL (130-400); RBC Distribution Width 13.2 % (11.5-14.5); Red Blood Cell (RBC) Count 2.88 mill/uL (4.20-5.40); White Blood Cell (WBC) Count 8.7 thou/uL (4.8-10.8)
[2021-08-28] MEDS: Levothyroxine Sodium 100 MCG TAB PO SCH (06:40)
[2021-08-28] MEDS ORDERED: Potassium Chloride 20 MEQ TAB PO SCH (08:45)
[2021-08-28] MEDS ORDERED: Pantoprazole 40 MG VIAL IVP SCH (09:00)
[2021-08-28] MEDS: Ondansetron PF 4 MG/2 ML Vial IVP PRN ×2 (15:31→23:19)
[2021-08-28] MEDS: DULoxetine 60 MG CAP PO SCH (15:34)
[2021-08-28] MEDS: Thiamine 100 MG TAB PO SCH (15:34)
[2021-08-28] MEDS: levETIRAcetam 500 MG TAB PO SCH ×2 (15:34→20:15)
[2021-08-28] MEDS: Amlodipine 10 MG TAB PO SCH (15:35)
[2021-08-28] MEDS: Dextrose 5% in Water 1,000 ML IV SCH (15:51)
[2021-08-28] MEDS ORDERED: Promethazine HCl 25 MG/ML VIAL IVPB PRN (17:39)
[2021-08-28] MEDS: Promethazine HCl 12.5 MG in Sodium Chloride 0.9% 50 ML IVPB PRN (19:37)
[2021-08-28] MEDS: Bisacodyl 10 MG SUPP PR SCH (20:15)
[2021-08-28] MEDS: Atorvastatin Calcium 40 MG TAB PO SCH (20:15)
[2021-08-28] MEDS: Pantoprazole 40 MG VIAL IVP SCH (20:16)
[2021-08-28] MEDS: Donepezil HCl 5 MG TAB PO SCH (20:20)
[2021-08-29] MEDS: HYDROcodone/Acetaminophen 7.5/325 mg Tablet PO PRN ×5 (00:14→21:16)
[2021-08-29] MEDS ORDERED: Morphine 2 MG/ML VIAL SLOW IVP SCH (02:45)
[2021-08-29 06:05] LABS: Anion Gap 13 mmol/L (10-20); BUN (Urea Nitrogen) 16 mg/dL (9.8-20.1); Calc. Creatinine Clearance 43 mL/min (70-130); Carbon Dioxide 26 mmol/L (23-31); Chloride 108 mmol/L (98-107); Estimated GFR 73; Glucose 116 mg/dL (80-115); Potassium 3.7 mmol/L (3.5-5.1); Sodium 143 mmol/L (136-145)
[2021-08-29] MEDS: Levothyroxine Sodium 100 MCG TAB PO SCH (06:14)
[2021-08-29 08:11] LABS: Hemoglobin 8.8 g/dL (12.0-16.0); MDiff Complete? YES; Mean Corpuscular HGB CONC 34.5 g/dL (32.0-36.0); Mean Corpuscular Hemoglobin 32.7 pg (27.0-31.0); Mean Corpuscular Volume 94.9 fL (78.0-98.0); Mean Platelet Volume 9.1 fL (7.4-10.4); Platelet Count 95 thou/uL (130-400); Red Blood Cell (RBC) Count 2.69 mill/uL (4.20-5.40); White Blood Cell (WBC) Count 11.9 thou/uL (4.8-10.8)
[2021-08-29 08:12] LABS: Band 31 % (5-11); Lymphocytes 7 % (21-51); Metamyelocyte 3 % (0-0); Monocytes 3 % (0-10); Myelocyte 6 % (0-0); Neutrophil 50 % (42-75); Nucleated RBC 4 % (0); Platelet Morphology Comment Appears Decreased; Polychromasia MODERATE = 3-4 cells (100X) (0-2/hpf); Schistocytes SLIGHT = 2-5 cells (100X) (0-1/hpf); Tear Drops SLIGHT = 2-5 cells (100X) (0-1/hpf)
[2021-08-29] MEDS ORDERED: Ondansetron PF 4 MG/2 ML Vial ONE (08:45)
[2021-08-29] MEDS ORDERED: Ketamine 50 MG/ML (10ML VIAL) ONE (09:07)
[2021-08-29] MEDS ORDERED: PROPOFOL 200 MG/20 ML VIAL ONE (09:16)
[2021-08-29] MEDS: Bisacodyl 10 MG SUPP PR SCH (09:46)
[2021-08-29] MEDS: Amlodipine 10 MG TAB PO SCH (09:46)
[2021-08-29] MEDS: Pantoprazole 40 MG VIAL IVP SCH ×2 (09:46→21:15)
[2021-08-29] MEDS: Thiamine 100 MG TAB PO SCH (11:01)
[2021-08-29] MEDS: DULoxetine 60 MG CAP PO SCH (11:01)
[2021-08-29] MEDS: levETIRAcetam 500 MG TAB PO SCH ×2 (11:01→21:17)
[2021-08-29] MEDS: Polyethylene Glycol 3350 17 GM Packet PO SCH (11:02)
[2021-08-29] MEDS: Promethazine HCl 12.5 MG in Sodium Chloride 0.9% 50 ML IVPB PRN ×2 (11:56→21:14)
[2021-08-29] MEDS: Morphine 2 MG/ML VIAL SLOW IVP PRN ×2 (13:42→17:46)
[2021-08-29] MEDS: Gabapentin 300 MG CAP PO SCH ×2 (13:43→21:15)
[2021-08-29] MEDS: Dextrose 5% in Water 1,000 ML IV SCH (13:48)
[2021-08-29] MEDS ORDERED: NALOXONE HCL SL SCH (21:00)
[2021-08-29] MEDS ORDERED: [UNRECOGNIZED DRUG - OTHER] SL SCH (21:00)
[2021-08-29] MEDS ORDERED: BUPRENORPHINE HCL SL SCH (21:00)
[2021-08-29] MEDS: Donepezil HCl 5 MG TAB PO SCH (21:15)
[2021-08-29] MEDS: Atorvastatin Calcium 40 MG TAB PO SCH (21:17)
[2021-08-30] MEDS: Morphine 2 MG/ML VIAL SLOW IVP PRN ×2 (01:51→10:27)
[2021-08-30] MEDS: HYDROcodone/Acetaminophen 7.5/325 mg Tablet PO PRN ×4 (03:32→17:54)
[2021-08-30] MEDS: Ondansetron PF 4 MG/2 ML Vial IVP PRN (03:51)
[2021-08-30 05:30] LABS: Anion Gap 11 mmol/L (10-20); BUN (Urea Nitrogen) 9 mg/dL (9.8-20.1); Calc. Creatinine Clearance 41 mL/min (70-130); Carbon Dioxide 28 mmol/L (23-31); Chloride 104 mmol/L (98-107); Estimated GFR 70; Glucose 102 mg/dL (80-115); Potassium 3.5 mmol/L (3.5-5.1); Sodium 139 mmol/L (136-145)
[2021-08-30] MEDS: Levothyroxine Sodium 100 MCG TAB PO SCH (05:42)
[2021-08-30] MEDS ORDERED: predniSONE 50 MG TAB PO SCH (08:00)
[2021-08-30] MEDS: Pantoprazole 40 MG VIAL IVP SCH ×2 (08:40→21:23)
[2021-08-30] MEDS: Polyethylene Glycol 3350 17 GM Packet PO SCH (08:41)
[2021-08-30] MEDS: Aspirin 81 mg Enteric Coated Tablet PO SCH (08:42)
[2021-08-30] MEDS: Thiamine 100 MG TAB PO SCH (08:42)
[2021-08-30] MEDS: Amlodipine 10 MG TAB PO SCH (08:42)
[2021-08-30] MEDS: DULoxetine 60 MG CAP PO SCH (08:42)
[2021-08-30] MEDS: Fluconazole 100 MG TAB PO SCH (08:42)
[2021-08-30] MEDS: Cholecalciferol 1,000 UNITS (25 MCG) TAB PO SCH (08:42)
[2021-08-30] MEDS: Gabapentin 300 MG CAP PO SCH ×3 (08:43→21:24)
[2021-08-30] MEDS: levETIRAcetam 500 MG TAB PO SCH ×2 (08:43→21:24)
[2021-08-30] MEDS: Multivitamin W/ Minerals 1 TAB PO SCH (08:43)
[2021-08-30] MEDS: Dextrose 5% in Water 1,000 ML IV SCH (08:48)
[2021-08-30] MEDS: Docusate 100 MG CAP PO SCH (08:49)
[2021-08-30] MEDS: Promethazine HCl 12.5 MG in Sodium Chloride 0.9% 50 ML IVPB PRN (10:27)
[2021-08-30] MEDS ORDERED: Magnesium Citrate 300 ML BOT PO SCH (12:00)
[2021-08-30] MEDS ORDERED: Lidocaine 5% Patch TD SCH (12:00)
[2021-08-30] MEDS: Metoclopramide HCl 10 MG/2 ML VIAL IVP SCH ×2 (14:22→21:24)
[2021-08-30] MEDS: Atorvastatin Calcium 40 MG TAB PO SCH (21:23)
[2021-08-30] MEDS: Donepezil HCl 5 MG TAB PO SCH (21:24)
[2021-08-30] MEDS ORDERED: Transdermal Patch Removal TOP SCH (23:59)
[2021-08-31 05:52] LABS: Anion Gap 13 mmol/L (10-20); BUN (Urea Nitrogen) 8 mg/dL (9.8-20.1); Calc. Creatinine Clearance 44 mL/min (70-130); Calcium 8.4 mg/dL (7.8-10.44); Carbon Dioxide 25 mmol/L (23-31); Chloride 106 mmol/L (98-107); Estimated GFR 76; Glucose 93 mg/dL (80-115); Sodium 140 mmol/L (136-145)
[2021-08-31 06:43] LABS: Band 14 % (5-11); Hemoglobin 10.2 g/dL (12.0-16.0); Lymphocytes 6 % (21-51); MDiff Complete? YES; Mean Corpuscular HGB CONC 30.6 g/dL (32.0-36.0); Mean Corpuscular Hemoglobin 31.5 pg (27.0-31.0); Mean Platelet Volume 9.6 fL (7.4-10.4); Myelocyte 2 % (0-0); Neutrophil 78 % (42-75); Platelet Count 154 thou/uL (130-400); RBC Distribution Width 15.5 % (11.5-14.5); Red Blood Cell (RBC) Count 3.24 mill/uL (4.20-5.40); White Blood Cell (WBC) Count 20.6 thou/uL (4.8-10.8)
[2021-08-31] MEDS: Levothyroxine Sodium 100 MCG TAB PO SCH (07:22)
[2021-08-31] MEDS: Metoclopramide HCl 10 MG/2 ML VIAL IVP SCH ×3 (07:22→20:21)
[2021-08-31] MEDS: HYDROcodone/Acetaminophen 7.5/325 mg Tablet PO PRN ×2 (08:39→20:20)
[2021-08-31] MEDS: Amlodipine 10 MG TAB PO SCH (08:41)
[2021-08-31] MEDS: Pantoprazole 40 MG VIAL IVP SCH ×2 (08:42→20:21)
[2021-08-31] MEDS: Docusate 100 MG CAP PO SCH (08:42)
[2021-08-31] MEDS: Aspirin 81 mg Enteric Coated Tablet PO SCH (08:42)
[2021-08-31] MEDS: DULoxetine 60 MG CAP PO SCH (08:43)
[2021-08-31] MEDS: Polyethylene Glycol 3350 17 GM Packet PO SCH (08:44)
[2021-08-31] MEDS: Dextrose 5% in Water 1,000 ML IV SCH (09:00)
[2021-08-31] MEDS: Lidocaine 5% Patch TD SCH (09:03)
[2021-08-31] MEDS ORDERED: Fleet Enema 133 ML BOT PR SCH (10:15)
[2021-08-31] MEDS: Gabapentin 300 MG CAP PO SCH ×3 (10:16→20:19)
[2021-08-31] MEDS: Cholecalciferol 1,000 UNITS (25 MCG) TAB PO SCH (10:17)
[2021-08-31] MEDS: levETIRAcetam 500 MG TAB PO SCH ×2 (10:18→20:20)
[2021-08-31] MEDS: Fluconazole 100 MG TAB PO SCH (10:18)
[2021-08-31] MEDS: Thiamine 100 MG TAB PO SCH (10:18)
[2021-08-31] MEDS: Multivitamin W/ Minerals 1 TAB PO SCH (10:18)
[2021-08-31] MEDS: Ondansetron PF 4 MG/2 ML Vial IVP PRN (10:51)
[2021-08-31] MEDS ORDERED: GoLYTELY 4,000 ml Bottle PO SCH (11:15)
[2021-08-31] MEDS ORDERED: Mineral Oil ENEMA PR SCH (11:15)
[2021-08-31] MEDS: Atorvastatin Calcium 40 MG TAB PO SCH (20:20)
[2021-08-31] MEDS: Donepezil HCl 5 MG TAB PO SCH (20:57)
[2021-08-31] MEDS: Transdermal Patch Removal TOP SCH (20:58)
[2021-09-01] MEDS: BUPRENORPHINE NALOX SL SCH ×2 (01:21→01:22)
[2021-09-01] MEDS: HYDROcodone/Acetaminophen 7.5/325 mg Tablet PO PRN ×4 (01:58→19:34)
[2021-09-01] MEDS: Dextrose 5% in Water 1,000 ML IV SCH ×2 (01:59→21:33)
[2021-09-01] MEDS: Metoclopramide HCl 10 MG/2 ML VIAL IVP SCH ×3 (05:32→22:03)
[2021-09-01] MEDS: Levothyroxine Sodium 100 MCG TAB PO SCH (05:32)
[2021-09-01] MEDS: Aspirin 81 mg Enteric Coated Tablet PO SCH (08:23)
[2021-09-01] MEDS: Lidocaine 5% Patch TD SCH (08:24)
[2021-09-01] MEDS: Polyethylene Glycol 3350 17 GM Packet PO SCH (08:24)
[2021-09-01] MEDS: Pantoprazole 40 MG VIAL IVP SCH ×2 (08:25→21:29)
[2021-09-01] MEDS: Gabapentin 300 MG CAP PO SCH ×3 (08:25→21:27)
[2021-09-01] MEDS: Amlodipine 10 MG TAB PO SCH (08:26)
[2021-09-01] MEDS: DULoxetine 60 MG CAP PO SCH (08:27)
[2021-09-01] MEDS: Multivitamin W/ Minerals 1 TAB PO SCH (08:27)
[2021-09-01] MEDS: Docusate 100 MG CAP PO SCH (08:27)
[2021-09-01] MEDS: Ondansetron PF 4 MG/2 ML Vial IVP PRN ×2 (09:29→18:42)
[2021-09-01] MEDS: Cholecalciferol 1,000 UNITS (25 MCG) TAB PO SCH (09:29)
[2021-09-01] MEDS: Thiamine 100 MG TAB PO SCH (09:30)
[2021-09-01] MEDS: levETIRAcetam 500 MG TAB PO SCH ×2 (09:30→21:28)
[2021-09-01] MEDS: Fluconazole 100 MG TAB PO SCH (09:30)
[2021-09-01 14:15] LABS: Hemoglobin 8.8 g/dL (12.0-16.0); Mean Corpuscular HGB CONC 32.5 g/dL (32.0-36.0); Mean Corpuscular Hemoglobin 32.3 pg (27.0-31.0); Mean Corpuscular Volume 99.3 fL (78.0-98.0); Mean Platelet Volume 8.5 fL (7.4-10.4); Platelet Count 203 thou/uL (130-400); Red Blood Cell (RBC) Count 2.73 mill/uL (4.20-5.40); White Blood Cell (WBC) Count 19.6 thou/uL (4.8-10.8)
[2021-09-01 14:30] LABS: ALT (SGPT) 34 U/L (8-55); AST (SGOT) 21 U/L (5-34); Albumin 2.9 g/dL (3.4-4.8); Alkaline Phosphatase 122 U/L (40-110); Anion Gap 12 mmol/L (10-20); BUN (Urea Nitrogen) 6 mg/dL (9.8-20.1); Bilirubin, Total Less than 0.2 mg/dL (0.2-1.2); Calc. Creatinine Clearance 45 mL/min (70-130); Carbon Dioxide 31 mmol/L (23-31); Chloride 102 mmol/L (98-107); Estimated GFR 78; Globulin 2.2 g/dL (2.4-3.5); Glucose 86 mg/dL (80-115); Protein, Total 5.1 g/dL (5.8-8.1); Sodium 141 mmol/L (136-145)
[2021-09-01 14:34] LABS: Band 6 % (5-11); Lymphocytes 8 % (21-51); MDiff Complete? YES; Macrocytosis SLIGHT = 6-15 cells (100X) (0-5/hpf); Monocytes 6 % (0-10); Myelocyte 3 % (0-0); Neutrophil 74 % (42-75); Nucleated RBC 2 % (0); Ovalocytes SLIGHT = 2-5 cells (100X) (0-1/hpf); Platelet Morphology Comment Appears Adequate; Polychromasia SLIGHT = 2-3 cells (100X) (0-2/hpf); Reactive Lymphocytes 2 % (0-10); Stomatocytes SLIGHT = 2-5 cells (100X) (0-1/hpf)
[2021-09-01] MEDS: Donepezil HCl 5 MG TAB PO SCH (21:28)
[2021-09-01] MEDS: Atorvastatin Calcium 40 MG TAB PO SCH (21:28)
[2021-09-01] MEDS: Transdermal Patch Removal TOP SCH (21:33)
[2021-09-02] MEDS: HYDROcodone/Acetaminophen 7.5/325 mg Tablet PO PRN ×3 (00:02→10:43)
[2021-09-02] MEDS: Levothyroxine Sodium 100 MCG TAB PO SCH (05:03)
[2021-09-02] MEDS: Metoclopramide HCl 10 MG/2 ML VIAL IVP SCH (05:03)
[2021-09-02 05:38] LABS: Band 17 % (5-11); Hemoglobin 8.5 g/dL (12.0-16.0); Lymphocytes 5 % (21-51); MDiff Complete? YES; Mean Corpuscular HGB CONC 32.2 g/dL (32.0-36.0); Mean Corpuscular Volume 99.4 fL (78.0-98.0); Mean Platelet Volume 8.1 fL (7.4-10.4); Monocytes 9 % (0-10); Myelocyte 4 % (0-0); Neutrophil 65 % (42-75); Platelet Count 222 thou/uL (130-400); RBC Distribution Width 15.1 % (11.5-14.5); Red Blood Cell (RBC) Count 2.67 mill/uL (4.20-5.40); White Blood Cell (WBC) Count 15.9 thou/uL (4.8-10.8)
[2021-09-02 08:11] VITALS: BP 136/75; TEMP 98.3
[2021-09-02] MEDS: Lidocaine 5% Patch TD SCH (09:05)
[2021-09-02] MEDS: Polyethylene Glycol 3350 17 GM Packet PO SCH (09:06)
[2021-09-02] MEDS: DULoxetine 60 MG CAP PO SCH (09:07)
[2021-09-02] MEDS: levETIRAcetam 500 MG TAB PO SCH (09:07)
[2021-09-02] MEDS: Docusate 100 MG CAP PO SCH (09:07)
[2021-09-02] MEDS: Pantoprazole 40 MG VIAL IVP SCH (09:07)
[2021-09-02] MEDS: Amlodipine 10 MG TAB PO SCH (09:08)
[2021-09-02] MEDS: Fluconazole 100 MG TAB PO SCH (09:08)
[2021-09-02] MEDS: Multivitamin W/ Minerals 1 TAB PO SCH (09:08)
[2021-09-02] MEDS: Gabapentin 300 MG CAP PO SCH (09:09)
[2021-09-02] MEDS: Thiamine 100 MG TAB PO SCH (09:10)
[2021-09-02] MEDS: Aspirin 81 mg Enteric Coated Tablet PO SCH (09:15)
[2021-09-02] MEDS: Cholecalciferol 1,000 UNITS (25 MCG) TAB PO SCH (10:43)
== END 2021-09-02 12:45 | disposition home health service (06) | DRG 377 ==
LOC: ERS 15:47 → SJJU 17:31 → SURG A 21:48 → MSONC 08-27 17:07
PROVIDERS: ADMIT Student in an Organized Health Care Education/Training Program; ATTEND Student in an Organized Health Care Education/Training Program
PROC: 30233N1 Transfusion of Nonautologous Red Blood Cells into Peripheral Vein, Percutaneous Approach (ICD-10-PCS; 2021-08-26)
PROC: 0W3P8ZZ Control Bleeding in Gastrointestinal Tract, Via Natural or Artificial Opening Endoscopic (ICD-10-PCS; principal; 2021-08-29)
DX: K26.4 Chronic or unspecified duodenal ulcer with hemorrhage (principal); Z20.822 Contact with and (suspected) exposure to COVID-19; E43 Unspecified severe protein-calorie malnutrition; G93.41 Metabolic encephalopathy; Z68.1 Body mass index [BMI] 19.9 or less, adult; E87.1 Hypo-osmolality and hyponatremia; C83.31 Diffuse large B-cell lymphoma, lymph nodes of head, face, and neck; E87.0 Hyperosmolality and hypernatremia; N17.9 Acute kidney failure, unspecified; K59.00 Constipation, unspecified; E87.6 Hypokalemia; D50.0 Iron deficiency anemia secondary to blood loss (chronic); E03.9 Hypothyroidism, unspecified; G40.909 Epilepsy, unspecified, not intractable, without status epilepticus; N18.30 Chronic kidney disease, stage 3 unspecified; I65.22 Occlusion and stenosis of left carotid artery; G89.4 Chronic pain syndrome; I12.9 Hypertensive chronic kidney disease with stage 1 through stage 4 chronic kidney disease, or unspecified chronic kidney disease; E78.00 Pure hypercholesterolemia, unspecified; F41.9 Anxiety disorder, unspecified; F32.A Depression, unspecified; F17.210 Nicotine dependence, cigarettes, uncomplicated; E86.1 Hypovolemia; M41.9 Scoliosis, unspecified; K31.819 Angiodysplasia of stomach and duodenum without bleeding; K25.4 Chronic or unspecified gastric ulcer with hemorrhage; D63.8 Anemia in other chronic diseases classified elsewhere; D72.829 Elevated white blood cell count, unspecified; T45.8X5A Adverse effect of other primarily systemic and hematological agents, initial encounter; Z88.1 Allergy status to other antibiotic agents; Z91.040 Latex allergy status; Z88.0 Allergy status to penicillin; Z88.2 Allergy status to sulfonamides; Z88.8 Allergy status to other drugs, medicaments and biological substances; Z91.09 Other allergy status, other than to drugs and biological substances; Z79.899 Other long term (current) drug therapy; Z79.890 Hormone replacement therapy; Z79.82 Long term (current) use of aspirin; Z79.52 Long term (current) use of systemic steroids; Z98.890 Other specified postprocedural states; Z80.42 Family history of malignant neoplasm of prostate; Z80.8 Family history of malignant neoplasm of other organs or systems
CPT/HCPCS: 36415; 36430; 70450; 71045; 74018; 74176; 76705; 80048; 80053; 80069; 81003; 82274; 83605; 83690; 83930; 83935; 84300; 84443; 84484; 85025; 85027; 85610; 85730; 86850; 86900; 86901; 87040; 87086; 93005; 96374; 96375; C9113; J0692; J1610; J2270; J2405; J2550; J2704; J2765; J3370; J3480; J7070; P9016; U0002

== ENCOUNTER 2021-10-15 09:30 | Outpatient (CLI) | payer MEDICARE | END 2021-10-15 09:31 | disposition home or self-care (01) | LOC: PET 09:30 | PROVIDERS: ATTEND Internal Medicine Hematology & Oncology | DX: C83.31 Diffuse large B-cell lymphoma, lymph nodes of head, face, and neck (principal); D50.8 Other iron deficiency anemias | CPT/HCPCS: 78815; A9552 ==

== ENCOUNTER 2021-10-26 12:15 | Day surgery (SDC) | payer MEDICARE ==
[2021-10-26] MEDS ORDERED: Acetaminophen 500 MG TAB PO SCH (12:30)
[2021-10-26] MEDS ORDERED: diphenhydrAMINE 25 MG CAP PO SCH (12:30)
[2021-10-26 12:53] VITALS: TEMP 97.9
[2021-10-26] MEDS ORDERED: Acetaminophen 500 MG TAB ONE (13:30)
[2021-10-26] MEDS ORDERED: diphenhydrAMINE 25 MG CAP ONE (13:30)
[2021-10-26 16:31] VITALS: BP 168/79
== END 2021-10-26 16:43 | disposition home or self-care (01) ==
LOC: ONC/OP 12:15
PROVIDERS: ATTEND Internal Medicine Hematology & Oncology
PROC: 30233N1 Transfusion of Nonautologous Red Blood Cells into Peripheral Vein, Percutaneous Approach (ICD-10-PCS; principal; 2021-10-26)
DX: D64.9 Anemia, unspecified (principal); D69.6 Thrombocytopenia, unspecified; Z88.0 Allergy status to penicillin; Z88.1 Allergy status to other antibiotic agents; Z88.2 Allergy status to sulfonamides; Z88.8 Allergy status to other drugs, medicaments and biological substances; Z91.040 Latex allergy status; Z91.048 Other nonmedicinal substance allergy status
CPT/HCPCS: 36430; 86850; 86900; 86901; J1642; P9016

== ENCOUNTER 2021-12-16 15:55 | Inpatient (IN) | payer MEDICARE ==
[2021-12-16] MEDS ORDERED: Bisacodyl 5 MG TAB PO PRN (18:31)
[2021-12-16 20:07] LABS: #Basophils 0.1 thou/uL (0.0-0.2); #Eosinphils 0.3 thou/uL (0.0-0.7); #Lymphocytes 1.1 thou/uL (1.20-3.40); #Neutrophils 7.4 thou/uL (1.40-6.50); %Basophils 0.6 % (0.0-1.0); %Eosinophils 3.5 % (0.0-10.0); %Lymphocytes 11.5 % (21.0-51.0); %Monocytes 10.1 % (0.0-10.0); %Neutrophils 74.3 % (42.0-75.0); Hemoglobin 10.1 g/dL (12.0-16.0); Mean Corpuscular HGB CONC 32.2 g/dL (32.0-36.0); Mean Corpuscular Hemoglobin 31.7 pg (27.0-31.0); Mean Corpuscular Volume 98.3 fL (78.0-98.0); Mean Platelet Volume 6.8 fL (7.4-10.4); Platelet Count 423 thou/uL (130-400); RBC Distribution Width 16.9 % (11.5-14.5); White Blood Cell (WBC) Count 9.9 thou/uL (4.8-10.8)
[2021-12-16 20:32] LABS: ALT (SGPT) 28 U/L (8-55); AST (SGOT) 26 U/L (5-34); Albumin 2.7 g/dL (3.4-4.8); Alkaline Phosphatase 123 U/L (40-110); Anion Gap 12 mmol/L (10-20); BUN (Urea Nitrogen) 14 mg/dL (9.8-20.1); Bilirubin, Total 0.2 mg/dL (0.2-1.2); Calc. Creatinine Clearance 0 mL/min (70-130); Calcium 11.5 mg/dL (7.8-10.44); Carbon Dioxide 36 mmol/L (23-31); Chloride 94 mmol/L (98-107); Estimated GFR 53; Globulin 2.9 g/dL (2.4-3.5); Glucose 99 mg/dL (80-115); Potassium 3.7 mmol/L (3.5-5.1); Protein, Total 5.6 g/dL (5.8-8.1); Sodium 138 mmol/L (136-145)
[2021-12-16] MEDS ORDERED: Famotidine 20 MG TAB PO SCH (21:00)
[2021-12-16] MEDS: Donepezil HCl 5 MG TAB PO SCH (21:03)
[2021-12-16] MEDS: Senokot S 8.6-50 MG TAB PO SCH (21:03)
[2021-12-16] MEDS: Sodium Chloride 0.9% 1,000 ML IV SCH (22:50)
[2021-12-16] MEDS ORDERED: Vancomycin 1 GM in Premix Bag 1 BAG IVPB SCH (23:00)
[2021-12-17 04:22] LABS: #Basophils 0.1 thou/uL (0.0-0.2); #Eosinphils 0.5 thou/uL (0.0-0.7); #Lymphocytes 1.2 thou/uL (1.20-3.40); #Neutrophils 6.9 thou/uL (1.40-6.50); %Eosinophils 4.7 % (0.0-10.0); %Lymphocytes 12.4 % (21.0-51.0); %Monocytes 9.9 % (0.0-10.0); %Neutrophils 72.1 % (42.0-75.0); Hemoglobin 9.5 g/dL (12.0-16.0); Mean Corpuscular HGB CONC 31.5 g/dL (32.0-36.0); Mean Corpuscular Hemoglobin 30.6 pg (27.0-31.0); Mean Corpuscular Volume 97.1 fL (78.0-98.0); Mean Platelet Volume 7.1 fL (7.4-10.4); Platelet Count 405 thou/uL (130-400); RBC Distribution Width 16.5 % (11.5-14.5); White Blood Cell (WBC) Count 9.6 thou/uL (4.8-10.8)
[2021-12-17 06:12] LABS: ALT (SGPT) 24 U/L (8-55); AST (SGOT) 21 U/L (5-34); Albumin 2.5 g/dL (3.4-4.8); Alkaline Phosphatase 109 U/L (40-110); Anion Gap 9 mmol/L (10-20); BUN (Urea Nitrogen) 12 mg/dL (9.8-20.1); Calc. Creatinine Clearance 37 mL/min (70-130); Carbon Dioxide 36 mmol/L (23-31); Chloride 95 mmol/L (98-107); Estimated GFR 61; Globulin 2.6 g/dL (2.4-3.5); Glucose 89 mg/dL (80-115); Potassium 3.4 mmol/L (3.5-5.1); Protein, Total 5.1 g/dL (5.8-8.1); Sodium 137 mmol/L (136-145)
[2021-12-17] MEDS: Levothyroxine Sodium 100 MCG TAB PO SCH (06:54)
[2021-12-17] MEDS: Sodium Chloride 0.9% 1,000 ML IV SCH ×2 (06:54→15:41)
[2021-12-17] MEDS ORDERED: Potassium Chloride 20 MEQ TAB PO SCH (07:30)
[2021-12-17 07:46] LABS: Bilirubin, Total 0.2 mg/dL (0.2-1.2)
[2021-12-17] MEDS ORDERED: Enoxaparin Sodium 40 MG/0.4 ML SYRINGE SC SCH (09:00)
[2021-12-17] MEDS: Senokot S 8.6-50 MG TAB PO SCH ×2 (09:15→20:10)
[2021-12-17] MEDS: DULoxetine 60 MG CAP PO SCH (09:15)
[2021-12-17] MEDS: Famotidine 20 MG TAB PO SCH (20:10)
[2021-12-17] MEDS: Donepezil HCl 5 MG TAB PO SCH (20:11)
[2021-12-17] MEDS: HYDROcodone/Acetaminophen 5/325 mg Tablet PO PRN (20:16)
[2021-12-18] MEDS: Vancomycin HCl 750 MG in Sodium Chloride 0.9% 250 ML 250 ML IVPB SCH ×2 (00:30→22:59)
[2021-12-18] MEDS: Sodium Chloride 0.9% 1,000 ML IV SCH ×3 (02:48→23:11)
[2021-12-18] MEDS: Ondansetron PF 4 MG/2 ML Vial IVP PRN ×2 (03:54→09:55)
[2021-12-18 05:18] LABS: #Basophils 0.1 thou/uL (0.0-0.2); #Eosinphils 0.4 thou/uL (0.0-0.7); #Monocytes 0.8 thou/uL (0.11-0.59); #Neutrophils 7.1 thou/uL (1.40-6.50); %Basophils 0.6 % (0.0-1.0); %Eosinophils 3.9 % (0.0-10.0); %Lymphocytes 10.7 % (21.0-51.0); %Monocytes 8.8 % (0.0-10.0); Hemoglobin 9.6 g/dL (12.0-16.0); Mean Corpuscular HGB CONC 31.6 g/dL (32.0-36.0); Mean Corpuscular Hemoglobin 31.4 pg (27.0-31.0); Mean Corpuscular Volume 99.2 fL (78.0-98.0); Platelet Count 390 thou/uL (130-400); RBC Distribution Width 16.3 % (11.5-14.5); Red Blood Cell (RBC) Count 3.06 mill/uL (4.20-5.40); White Blood Cell (WBC) Count 9.3 thou/uL (4.8-10.8)
[2021-12-18 05:45] LABS: ALT (SGPT) 21 U/L (8-55); AST (SGOT) 17 U/L (5-34); Albumin 2.4 g/dL (3.4-4.8); Alkaline Phosphatase 102 U/L (40-110); Anion Gap 11 mmol/L (10-20); BUN (Urea Nitrogen) 11 mg/dL (9.8-20.1); Bilirubin, Total 0.2 mg/dL (0.2-1.2); Calc. Creatinine Clearance 41 mL/min (70-130); Calcium 10.8 mg/dL (7.8-10.44); Carbon Dioxide 29 mmol/L (23-31); Chloride 103 mmol/L (98-107); Estimated GFR 70; Globulin 2.5 g/dL (2.4-3.5); Glucose 140 mg/dL (80-115); Potassium 4.2 mmol/L (3.5-5.1); Protein, Total 4.9 g/dL (5.8-8.1); Sodium 139 mmol/L (136-145)
[2021-12-18] MEDS: Levothyroxine Sodium 100 MCG TAB PO SCH (06:00)
[2021-12-18] MEDS: HYDROcodone/Acetaminophen 5/325 mg Tablet PO PRN (09:39)
[2021-12-18] MEDS: Senokot S 8.6-50 MG TAB PO SCH ×2 (09:40→21:07)
[2021-12-18] MEDS: Enoxaparin Sodium 30 MG/0.3 ML SYRINGE SC SCH (09:40)
[2021-12-18] MEDS: DULoxetine 60 MG CAP PO SCH (09:40)
[2021-12-18] MEDS ORDERED: [UNRECOGNIZED DRUG - OTHER] SL SCH (15:00)
[2021-12-18] MEDS ORDERED: NALOXONE HCL SL SCH (15:00)
[2021-12-18] MEDS ORDERED: BUPRENORPHINE HCL SL SCH (15:00)
[2021-12-18] MEDS: Gabapentin 300 MG CAP PO SCH ×2 (15:20→21:09)
[2021-12-18] MEDS: Buprenorphine 8mg/Naloxone 2mg per 1 FILM SL SCH ×3 (15:48→22:51)
[2021-12-18] MEDS: Atorvastatin Calcium 40 MG TAB PO SCH (21:03)
[2021-12-18] MEDS: Famotidine 20 MG TAB PO SCH (21:04)
[2021-12-18] MEDS: traZODone HCl 50 MG TAB PO SCH (21:04)
[2021-12-18] MEDS: levETIRAcetam 500 MG TAB PO SCH (21:04)
[2021-12-18] MEDS: Donepezil HCl 5 MG TAB PO SCH (21:07)
[2021-12-18] MEDS: Acetaminophen 325 MG TAB PO PRN (21:08)
[2021-12-18 22:46] LABS: Vancomycin, Trough 21.1 ug/mL
[2021-12-19 05:28] LABS: Magnesium 1.4 mg/dL (1.6-2.6)
[2021-12-19] MEDS: Buprenorphine 8mg/Naloxone 2mg per 1 FILM SL SCH ×3 (06:45→22:33)
[2021-12-19] MEDS ORDERED: Magnesium 2 GM/50 ML(in water) 2 GM in Premix Bag 1 BAG IVPB SCH (08:00)
[2021-12-19 08:14] LABS: Anion Gap 10 mmol/L (10-20); BUN (Urea Nitrogen) 8 mg/dL (9.8-20.1); Calc. Creatinine Clearance 43 mL/min (70-130); Calcium 9.6 mg/dL (7.8-10.44); Carbon Dioxide 26 mmol/L (23-31); Chloride 105 mmol/L (98-107); Estimated GFR 72; Glucose 131 mg/dL (80-115); Potassium 3.3 mmol/L (3.5-5.1); Sodium 138 mmol/L (136-145)
[2021-12-19] MEDS ORDERED: Non-Formulary Item 1 EACH (Multivitamin [Multivitamin] 1 EACH Tablet) PO SCH (09:00)
[2021-12-19] MEDS: Amlodipine 5 MG TAB PO SCH (10:40)
[2021-12-19] MEDS: Senokot S 8.6-50 MG TAB PO SCH ×2 (10:41→22:07)
[2021-12-19] MEDS: DULoxetine 60 MG CAP PO SCH (10:42)
[2021-12-19] MEDS: Levothyroxine Sodium 100 MCG TAB PO SCH (10:42)
[2021-12-19] MEDS: Enoxaparin Sodium 30 MG/0.3 ML SYRINGE SC SCH (10:42)
[2021-12-19] MEDS: Gabapentin 300 MG CAP PO SCH ×3 (10:42→22:18)
[2021-12-19] MEDS: levETIRAcetam 500 MG TAB PO SCH ×2 (10:42→22:08)
[2021-12-19] MEDS: Multivit, Therapeutic 1 TAB PO SCH (10:45)
[2021-12-19] MEDS: HYDROcodone/Acetaminophen 5/325 mg Tablet PO PRN (10:46)
[2021-12-19] MEDS ORDERED: Potassium Chloride 20 MEQ TAB PO SCH (14:30)
[2021-12-19] MEDS: traZODone HCl 50 MG TAB PO SCH (22:07)
[2021-12-19] MEDS: Donepezil HCl 5 MG TAB PO SCH (22:08)
[2021-12-19] MEDS: Atorvastatin Calcium 40 MG TAB PO SCH (22:09)
[2021-12-19] MEDS: Famotidine 20 MG TAB PO SCH (22:09)
[2021-12-19] MEDS: Vancomycin HCl 750 MG in Sodium Chloride 0.9% 250 ML 250 ML IVPB SCH (22:36)
[2021-12-20 04:41] LABS: #Basophils 0.1 thou/uL (0.0-0.2); #Eosinphils 0.6 thou/uL (0.0-0.7); #Lymphocytes 1.2 thou/uL (1.20-3.40); #Monocytes 0.9 thou/uL (0.11-0.59); #Neutrophils 6.9 thou/uL (1.40-6.50); %Basophils 0.7 % (0.0-1.0); %Eosinophils 6.5 % (0.0-10.0); %Lymphocytes 12.2 % (21.0-51.0); %Monocytes 9.6 % (0.0-10.0); %Neutrophils 71.1 % (42.0-75.0); Hemoglobin 9.2 g/dL (12.0-16.0); Mean Corpuscular HGB CONC 31.7 g/dL (32.0-36.0); Mean Corpuscular Hemoglobin 31.5 pg (27.0-31.0); Mean Corpuscular Volume 99.4 fL (78.0-98.0); Mean Platelet Volume 7.1 fL (7.4-10.4); Platelet Count 380 thou/uL (130-400); RBC Distribution Width 16.4 % (11.5-14.5); White Blood Cell (WBC) Count 9.7 thou/uL (4.8-10.8)
[2021-12-20 05:04] LABS: Anion Gap 11 mmol/L (10-20); BUN (Urea Nitrogen) 11 mg/dL (9.8-20.1); Calc. Creatinine Clearance 46 mL/min (70-130); Calcium 10.2 mg/dL (7.8-10.44); Carbon Dioxide 28 mmol/L (23-31); Chloride 104 mmol/L (98-107); Estimated GFR 80; Glucose 92 mg/dL (80-115); Potassium 4.3 mmol/L (3.5-5.1); Sodium 139 mmol/L (136-145)
[2021-12-20] MEDS: Enoxaparin Sodium 30 MG/0.3 ML SYRINGE SC SCH (10:38)
[2021-12-20] MEDS: Amlodipine 5 MG TAB PO SCH ×2 (10:38→10:42)
[2021-12-20] MEDS: Sodium Chloride 0.9% 1,000 ML IV SCH ×2 (10:39→23:07)
[2021-12-20] MEDS: Gabapentin 300 MG CAP PO SCH ×3 (10:39→21:38)
[2021-12-20] MEDS: Multivit, Therapeutic 1 TAB PO SCH (10:39)
[2021-12-20] MEDS: Senokot S 8.6-50 MG TAB PO SCH ×2 (10:39→21:39)
[2021-12-20] MEDS: DULoxetine 60 MG CAP PO SCH (10:39)
[2021-12-20] MEDS: levETIRAcetam 500 MG TAB PO SCH ×2 (10:39→21:39)
[2021-12-20] MEDS: Levothyroxine Sodium 100 MCG TAB PO SCH (10:41)
[2021-12-20] MEDS: Buprenorphine 8mg/Naloxone 2mg per 1 FILM SL SCH ×3 (11:00→23:53)
[2021-12-20 11:23] VITALS: BMI 16.1
[2021-12-20 16:50] LABS: Reference Lab Name LABCORP
[2021-12-20] MEDS: HYDROcodone/Acetaminophen 5/325 mg Tablet PO PRN (21:32)
[2021-12-20] MEDS: Atorvastatin Calcium 40 MG TAB PO SCH (21:37)
[2021-12-20] MEDS: Famotidine 20 MG TAB PO SCH (21:39)
[2021-12-20] MEDS: Donepezil HCl 5 MG TAB PO SCH (21:39)
[2021-12-20 22:50] LABS: Vancomycin, Trough 16.8 ug/mL
[2021-12-20] MEDS: traZODone HCl 50 MG TAB PO SCH (23:07)
[2021-12-21] MEDS: Vancomycin HCl 750 MG in Sodium Chloride 0.9% 250 ML 250 ML IVPB SCH ×2 (00:40→22:37)
[2021-12-21] MEDS: Sodium Chloride 0.9% 1,000 ML IV SCH ×3 (03:49→23:58)
[2021-12-21 06:52] LABS: Anion Gap 13 mmol/L (10-20); BUN (Urea Nitrogen) 10 mg/dL (9.8-20.1); Calc. Creatinine Clearance 47 mL/min (70-130); Calcium 10.4 mg/dL (7.8-10.44); Carbon Dioxide 26 mmol/L (23-31); Chloride 106 mmol/L (98-107); Estimated GFR 81; Glucose 79 mg/dL (80-115); Potassium 3.7 mmol/L (3.5-5.1); Sodium 141 mmol/L (136-145)
[2021-12-21] MEDS: Levothyroxine Sodium 100 MCG TAB PO SCH (08:00)
[2021-12-21] MEDS: Buprenorphine 8mg/Naloxone 2mg per 1 FILM SL SCH ×2 (08:00→13:12)
[2021-12-21] MEDS: Amlodipine 5 MG TAB PO SCH (08:00)
[2021-12-21] MEDS: levETIRAcetam 500 MG TAB PO SCH ×2 (08:00→20:58)
[2021-12-21] MEDS: Multivit, Therapeutic 1 TAB PO SCH (08:01)
[2021-12-21] MEDS: Gabapentin 300 MG CAP PO SCH ×3 (08:01→20:57)
[2021-12-21] MEDS: DULoxetine 60 MG CAP PO SCH (08:01)
[2021-12-21] MEDS: Enoxaparin Sodium 30 MG/0.3 ML SYRINGE SC SCH (08:01)
[2021-12-21] MEDS: Senokot S 8.6-50 MG TAB PO SCH ×2 (08:01→20:56)
[2021-12-21] MEDS ORDERED: PROPOFOL 200 MG/20 ML VIAL ONE (09:50)
[2021-12-21] MEDS ORDERED: PHENYLEPHRINE-NS 100 MCG/ML 10 ML SYRINGE ONE (09:50)
[2021-12-21] MEDS: HYDROcodone/Acetaminophen 5/325 mg Tablet PO PRN (13:13)
[2021-12-21] MEDS ORDERED: NALOXONE SL PRN (14:26)
[2021-12-21] MEDS ORDERED: BUPRENORPHINE SL PRN (14:26)
[2021-12-21] MEDS: NALOXONE SL SCH ×2 (14:59→23:28)
[2021-12-21] MEDS: BUPRENORPHINE SL SCH ×2 (14:59→23:28)
[2021-12-21] MEDS ORDERED: Prochlorperazine Maleate 5 MG TAB PO PRN (17:01)
[2021-12-21] MEDS: Atorvastatin Calcium 40 MG TAB PO SCH (20:57)
[2021-12-21] MEDS: Donepezil HCl 5 MG TAB PO SCH (20:57)
[2021-12-21] MEDS: Famotidine 20 MG TAB PO SCH (20:58)
[2021-12-21] MEDS: traZODone HCl 50 MG TAB PO SCH (21:26)
[2021-12-22] MEDS: NALOXONE SL SCH ×3 (06:01→23:25)
[2021-12-22] MEDS: BUPRENORPHINE SL SCH ×3 (06:01→23:25)
[2021-12-22] MEDS: Levothyroxine Sodium 100 MCG TAB PO SCH (09:33)
[2021-12-22] MEDS: Gabapentin 300 MG CAP PO SCH ×3 (09:34→20:37)
[2021-12-22] MEDS: DULoxetine 60 MG CAP PO SCH (09:37)
[2021-12-22] MEDS: Senokot S 8.6-50 MG TAB PO SCH ×2 (09:37→20:36)
[2021-12-22] MEDS: HYDROcodone/Acetaminophen 5/325 mg Tablet PO PRN (09:37)
[2021-12-22] MEDS: Multivit, Therapeutic 1 TAB PO SCH (09:38)
[2021-12-22] MEDS: levETIRAcetam 500 MG TAB PO SCH ×2 (09:38→20:36)
[2021-12-22] MEDS: Enoxaparin Sodium 30 MG/0.3 ML SYRINGE SC SCH (09:38)
[2021-12-22] MEDS: Amlodipine 5 MG TAB PO SCH (09:40)
[2021-12-22] MEDS: Sodium Chloride 0.9% 1,000 ML IV SCH (09:45)
[2021-12-22] MEDS: traZODone HCl 50 MG TAB PO SCH (20:36)
[2021-12-22] MEDS: Famotidine 20 MG TAB PO SCH (20:37)
[2021-12-22] MEDS: Donepezil HCl 5 MG TAB PO SCH (20:37)
[2021-12-22] MEDS: Atorvastatin Calcium 40 MG TAB PO SCH (20:38)
[2021-12-22 23:12] LABS: Vancomycin, Trough 12.8 ug/mL
[2021-12-23] MEDS: BUPRENORPHINE SL SCH ×3 (06:12→22:30)
[2021-12-23] MEDS: NALOXONE SL SCH ×3 (06:12→22:30)
[2021-12-23 06:38] LABS: #Eosinphils 0.7 thou/uL (0.0-0.7); #Lymphocytes 0.7 thou/uL (1.20-3.40); #Monocytes 0.7 thou/uL (0.11-0.59); #Neutrophils 6.5 thou/uL (1.40-6.50); %Basophils 0.4 % (0.0-1.0); %Eosinophils 8.4 % (0.0-10.0); %Lymphocytes 8.6 % (21.0-51.0); %Neutrophils 74.7 % (42.0-75.0); Hemoglobin 8.7 g/dL (12.0-16.0); Mean Corpuscular Hemoglobin 31.3 pg (27.0-31.0); Platelet Count 360 thou/uL (130-400); RBC Distribution Width 16.2 % (11.5-14.5); Red Blood Cell (RBC) Count 2.79 mill/uL (4.20-5.40); White Blood Cell (WBC) Count 8.7 thou/uL (4.8-10.8)
[2021-12-23 06:57] LABS: Anion Gap 11 mmol/L (10-20); BUN (Urea Nitrogen) 9 mg/dL (9.8-20.1); Calc. Creatinine Clearance 45 mL/min (70-130); Calcium 9.9 mg/dL (7.8-10.44); Carbon Dioxide 30 mmol/L (23-31); Chloride 107 mmol/L (98-107); Estimated GFR 79; Glucose 93 mg/dL (80-115); Magnesium 1.6 mg/dL (1.6-2.6); Potassium 4.2 mmol/L (3.5-5.1); Sodium 144 mmol/L (136-145)
[2021-12-23] MEDS ORDERED: Magnesium 2 GM/50 ML(in water) 2 GM in Premix Bag 1 BAG IVPB SCH (08:00)
[2021-12-23] MEDS: levETIRAcetam 500 MG TAB PO SCH ×2 (08:47→20:24)
[2021-12-23] MEDS: Gabapentin 300 MG CAP PO SCH ×3 (08:47→20:24)
[2021-12-23] MEDS: Levothyroxine Sodium 100 MCG TAB PO SCH (08:47)
[2021-12-23] MEDS: Senokot S 8.6-50 MG TAB PO SCH ×2 (08:47→20:24)
[2021-12-23] MEDS: Multivit, Therapeutic 1 TAB PO SCH (08:47)
[2021-12-23] MEDS: DULoxetine 60 MG CAP PO SCH (08:47)
[2021-12-23] MEDS: Enoxaparin Sodium 30 MG/0.3 ML SYRINGE SC SCH (08:48)
[2021-12-23] MEDS: Amlodipine 5 MG TAB PO SCH (08:48)
[2021-12-23 15:50] LABS: Hemoglobin 8.1 g/dL (12.0-16.0)
[2021-12-23] MEDS: HYDROcodone/Acetaminophen 5/325 mg Tablet PO PRN (17:50)
[2021-12-23] MEDS: Donepezil HCl 5 MG TAB PO SCH (20:23)
[2021-12-23] MEDS: traZODone HCl 50 MG TAB PO SCH (20:23)
[2021-12-23] MEDS: Famotidine 20 MG TAB PO SCH (20:25)
[2021-12-23] MEDS: Atorvastatin Calcium 40 MG TAB PO SCH (20:25)
[2021-12-24] MEDS: BUPRENORPHINE SL SCH ×2 (06:01→14:48)
[2021-12-24] MEDS: NALOXONE SL SCH ×2 (06:01→14:48)
[2021-12-24 08:08] LABS: #Eosinphils 0.6 thou/uL (0.0-0.7); #Lymphocytes 0.8 thou/uL (1.20-3.40); #Monocytes 0.7 thou/uL (0.11-0.59); #Neutrophils 7.7 thou/uL (1.40-6.50); %Basophils 0.2 % (0.0-1.0); %Eosinophils 6.1 % (0.0-10.0); %Lymphocytes 8.2 % (21.0-51.0); %Monocytes 6.8 % (0.0-10.0); %Neutrophils 78.6 % (42.0-75.0); Hemoglobin 9.3 g/dL (12.0-16.0); Mean Corpuscular HGB CONC 32.4 g/dL (32.0-36.0); Mean Corpuscular Hemoglobin 32.9 pg (27.0-31.0); Mean Platelet Volume 6.7 fL (7.4-10.4); Platelet Count 355 thou/uL (130-400); RBC Distribution Width 16.4 % (11.5-14.5); Red Blood Cell (RBC) Count 2.83 mill/uL (4.20-5.40); White Blood Cell (WBC) Count 9.8 thou/uL (4.8-10.8)
[2021-12-24 08:29] LABS: Anion Gap 10 mmol/L (10-20); BUN (Urea Nitrogen) 10 mg/dL (9.8-20.1); Calc. Creatinine Clearance 38 mL/min (70-130); Calcium 9.9 mg/dL (7.8-10.44); Carbon Dioxide 32 mmol/L (23-31); Chloride 100 mmol/L (98-107); Estimated GFR 64; Glucose 122 mg/dL (80-115); Magnesium 1.9 mg/dL (1.6-2.6); Sodium 138 mmol/L (136-145)
[2021-12-24] MEDS: Amlodipine 5 MG TAB PO SCH (08:44)
[2021-12-24] MEDS: levETIRAcetam 500 MG TAB PO SCH (08:45)
[2021-12-24] MEDS: DULoxetine 60 MG CAP PO SCH (08:45)
[2021-12-24] MEDS: Senokot S 8.6-50 MG TAB PO SCH (08:45)
[2021-12-24] MEDS: Multivit, Therapeutic 1 TAB PO SCH (08:45)
[2021-12-24] MEDS: Gabapentin 300 MG CAP PO SCH ×2 (08:47→14:46)
[2021-12-24] MEDS: Enoxaparin Sodium 30 MG/0.3 ML SYRINGE SC SCH (08:48)
[2021-12-24] MEDS: Levothyroxine Sodium 100 MCG TAB PO SCH (08:48)
[2021-12-24] MEDS: Acetaminophen 325 MG TAB PO PRN (08:57)
[2021-12-24 11:47] VITALS: BP 122/54; TEMP 98.2
[2021-12-24 15:18] LABS: Calcium (Total) 10.8
== END 2021-12-24 15:34 | disposition swing bed (61) | DRG 640 ==
LOC: 2NO 16:10 → T4-B 12-20 19:02
PROVIDERS: ADMIT Internal Medicine; ATTEND Family Medicine
PROC: 0W3P8ZZ Control Bleeding in Gastrointestinal Tract, Via Natural or Artificial Opening Endoscopic (ICD-10-PCS; principal; 2021-12-21)
DX: E83.52 Hypercalcemia (principal); K25.4 Chronic or unspecified gastric ulcer with hemorrhage; K26.4 Chronic or unspecified duodenal ulcer with hemorrhage; C85.11 Unspecified B-cell lymphoma, lymph nodes of head, face, and neck; L03.114 Cellulitis of left upper limb; D62 Acute posthemorrhagic anemia; E44.0 Moderate protein-calorie malnutrition; Z68.1 Body mass index [BMI] 19.9 or less, adult; Z20.822 Contact with and (suspected) exposure to COVID-19; E03.9 Hypothyroidism, unspecified; Z96.642 Presence of left artificial hip joint; F17.210 Nicotine dependence, cigarettes, uncomplicated; R40.0 Somnolence; G89.4 Chronic pain syndrome; E78.5 Hyperlipidemia, unspecified; K44.9 Diaphragmatic hernia without obstruction or gangrene; D63.0 Anemia in neoplastic disease; R53.81 Other malaise; E86.0 Dehydration; N18.30 Chronic kidney disease, stage 3 unspecified; K59.09 Other constipation; I12.9 Hypertensive chronic kidney disease with stage 1 through stage 4 chronic kidney disease, or unspecified chronic kidney disease; Z88.8 Allergy status to other drugs, medicaments and biological substances; Z91.040 Latex allergy status; Z88.0 Allergy status to penicillin; Z88.2 Allergy status to sulfonamides; Z91.048 Other nonmedicinal substance allergy status; Z79.890 Hormone replacement therapy; Z79.899 Other long term (current) drug therapy
CPT/HCPCS: 36415; 80048; 80053; 80202; 82274; 83735; 83970; 85025; 87811; 97139; J1642; J1650; J2405; J2704; J3370; J3475; J7050; U0003; U0005

== ENCOUNTER 2022-01-14 11:13 | Emergency (ER) | payer MEDICARE ==
[2022-01-14 14:16] LABS: #Eosinphils 0.2 thou/uL (0.0-0.7); #Lymphocytes 1.1 thou/uL (1.20-3.40); #Monocytes 0.6 thou/uL (0.11-0.59); #Neutrophils 7.4 thou/uL (1.40-6.50); %Basophils 0.1 % (0.0-1.0); %Eosinophils 2.6 % (0.0-10.0); %Lymphocytes 11.8 % (21.0-51.0); %Monocytes 6.7 % (0.0-10.0); %Neutrophils 78.8 % (42.0-75.0); Mean Corpuscular Hemoglobin 33.5 pg (27.0-31.0); Mean Platelet Volume 6.3 fL (7.4-10.4); Platelet Count 300 10x3/uL (130-400); RBC Distribution Width 15.2 % (11.5-14.5); Red Blood Cell (RBC) Count 2.38 mill/uL (4.20-5.40); White Blood Cell (WBC) Count 9.4 10x3/uL (4.8-10.8)
[2022-01-14 14:46] LABS: ALT (SGPT) 9 U/L (8-55); AST (SGOT) 14 U/L (5-34); Albumin 2.8 g/dL (3.4-4.8); Alkaline Phosphatase 101 U/L (40-110); Anion Gap 9 mmol/L (10-20); BUN (Urea Nitrogen) 4 mg/dL (9.8-20.1); Bilirubin, Total 0.3 mg/dL (0.2-1.2); Calc. Creatinine Clearance 0 mL/min (70-130); Calcium 8.4 mg/dL (7.8-10.44); Carbon Dioxide 31 mmol/L (23-31); Chloride 104 mmol/L (98-107); Estimated GFR 78; Globulin 2.2 g/dL (2.4-3.5); Glucose 83 mg/dL (80-115); Potassium 3.2 mmol/L (3.5-5.1); Sodium 141 mmol/L (136-145)
[2022-01-14 14:59] LABS: CKMB 2.5 ng/mL (0-6.6)
[2022-01-14 18:11] LABS: CKMB 2.4 ng/mL (0-6.6)
== END 2022-01-14 19:02 | disposition home or self-care (01) ==
LOC: ERS 11:13
DX: I82.433 Acute embolism and thrombosis of popliteal vein, bilateral (principal); E03.9 Hypothyroidism, unspecified; E78.00 Pure hypercholesterolemia, unspecified; I10 Essential (primary) hypertension; F17.210 Nicotine dependence, cigarettes, uncomplicated; Z79.899 Other long term (current) drug therapy
CPT/HCPCS: 36415; 71045; 80053; 82553; 83605; 83880; 84484; 85025; 93005; 93970

== ENCOUNTER 2022-06-29 15:17 | Outpatient (CLI) | payer MEDICARE | END 2022-06-29 15:18 | disposition home or self-care (01) | LOC: TBSIIMAG 15:17 | PROVIDERS: ATTEND Anesthesiology Pain Medicine | DX: M48.062 Spinal stenosis, lumbar region with neurogenic claudication (principal); M48.02 Spinal stenosis, cervical region; M47.815 Spondylosis without myelopathy or radiculopathy, thoracolumbar region; M47.817 Spondylosis without myelopathy or radiculopathy, lumbosacral region; Z98.890 Other specified postprocedural states | CPT/HCPCS: 72148 ==

== ENCOUNTER 2022-06-30 15:09 | Outpatient (CLI) | payer MEDICARE | END 2022-06-30 15:10 | disposition home or self-care (01) | LOC: TBSIIMAG 15:09 | PROVIDERS: ATTEND Anesthesiology Pain Medicine | DX: M48.02 Spinal stenosis, cervical region (principal); M47.812 Spondylosis without myelopathy or radiculopathy, cervical region | CPT/HCPCS: 72141 ==

== ENCOUNTER 2024-04-07 15:51 | Emergency (ER) | payer MEDICARE ==
[2024-04-07 17:13] LABS: #Basophils 0.12 10x3/uL (0.0-0.2); %Basophils 2.1 % (0.0-1.0); %Eosinophils 1.9 % (0.0-10.0); %Monocytes 4.9 % (0.0-10.0); %Neutrophils 73.8 % (42.0-75.0); Hematocrit 39.6 % (36.0-47.0); Hemoglobin 12.3 g/dL (12.0-16.0); Mean Corpuscular HGB CONC 31.1 g/dL (32.0-36.0); Mean Corpuscular Hemoglobin 31.1 pg (27.0-31.0); Mean Platelet Volume 9.3 fL (7.4-10.4); Platelet Count 290 10x3/uL (130-400); RBC Distribution Width 14.6 % (11.5-14.5); Red Blood Cell (RBC) Count 3.96 mill/uL (4.20-5.40)
[2024-04-07 17:25] LABS: Lipase 10 U/L (8-78)
[2024-04-07 17:27] LABS: Acetaminophen Less than 10 mcg/mL (Less than 10); Alcohol Less than 10.0 mg/dL (Less than 10); Salicylate 9.1 mg/dL (Less than 8.0)
[2024-04-07 17:29] LABS: ALT (SGPT) 10 U/L (Less than 34); AST (SGOT) 20 U/L (11-34); Albumin 3.8 g/dL (3.1-4.5); Alkaline Phosphatase 102 U/L (40-110); Anion Gap 16 mmol/L (10-20); BUN (Urea Nitrogen) 13 mg/dL (9.8-20.1); Bilirubin, Total 0.3 mg/dL (0.3-1.2); CK (CPK) 161 U/L (29-168); Calc. Creatinine Clearance 0 mL/min (70-130); Calcium 9.2 mg/dL (7.8-10.44); Carbon Dioxide 22 mmol/L (23-31); Chloride 111 mmol/L (98-107); Estimated GFR 49; Globulin 2.9 g/dL (2.4-3.5); Glucose 76 mg/dL (80-115); Potassium 4.5 mmol/L (3.5-5.1); Protein, Total 6.7 g/dL (5.8-8.1); Sodium 144 mmol/L (136-145)
[2024-04-07 17:32] LABS: Troponin I 0.028 ng/mL (< 0.028)
[2024-04-07 18:45] LABS: Bacteria/HPF None Seen HPF (None Seen); Bilirubin Negative (Negative); Blood, Urine Negative (Negative); CAUTI Indications for Culture Alt mental st,lethar; Clarity Clear (Clear); Glucose, Urine (Dipstick) Normal (Negative); Ketone, Urine Negative (Negative); Leukocyte Negative Leu/uL (Negative); Nitrite Negative (Negative); Protein, Urine (Dipstick) 10 mg/dL (Neg-Trace); RBC/HPF 0-3 HPF (0-3); Squamous Epithelial 0-3 HPF (0-3); Urobilinogen Normal mg/dL (Less than 2); WBC/HPF 0-3 HPF (0-3); pH, Urine 5.5 (5.0-9.0)
[2024-04-07 18:48] LABS: Urine Culture Reflex No No
[2024-04-07 18:55] LABS: Amphetamine Not Detected (NotDetected); Barbiturates Screen Not Detected (NotDetected); Benzodiazepine Screen Not Detected (NotDetected); Cocaine Metabolite Screen Not Detected (NotDetected); Methadone Not Detected (NotDetected); Methamphetamine Not Detected (NotDetected); Opiate Screen Not Detected (NotDetected); Oxycodone Screen Not Detected (NotDetected); Phencyclidine (PCP) Not Detected (NotDetected); THC/Cannabinoid Screen Not Detected (NotDetected); Tricyclic Screen Not Detected (NotDetected)
== END 2024-04-07 20:18 | disposition home or self-care (01) ==
LOC: ERS 15:51
DX: R53.1 Weakness (principal); E05.90 Thyrotoxicosis, unspecified without thyrotoxic crisis or storm; E78.5 Hyperlipidemia, unspecified; I10 Essential (primary) hypertension; E03.9 Hypothyroidism, unspecified; Z79.890 Hormone replacement therapy; F17.210 Nicotine dependence, cigarettes, uncomplicated; Z79.899 Other long term (current) drug therapy
CPT/HCPCS: 36415; 70450; 71045; 80053; 80306; 80307; 81001; 82140; 82550; 83690; 84443; 84484; 85025; 87428; 93005